=== PATIENT | male | born 1955 | race Caucasian/White ===

== ENCOUNTER 2021-10-21 15:21 | Inpatient (IN) | payer OTHER ==
[2021-10-21 16:05] LABS: Urine Blood Trace-intact (Negative); Urine Glucose Negative (Negative); Urine Protein 2+ (Negative); Urine Specific Gravity 1.025 (1.005-1.030); Urine pH 6.5 (5.0-7.0)
[2021-10-21] MEDS ORDERED: ONDANSETRON 4 MG/2 ML VIAL ONE (16:54)
[2021-10-21] MEDS ORDERED: HYDROMORPHONE HCL 1 MG/ML INJ ONE (16:54)
[2021-10-21 16:55] LABS: Absolute Lymphocytes (CBC) 1.2 K/uL (0.7-4.9); Hematocrit 45.4 % (39.6-49.0); Lymphocytes % 9.1 % (15.3-44.8); MPV 8.8 fL (7.6-11.3); RBC Red Blood Cell Count 4.91 M/uL (4.33-5.43)
[2021-10-21] MEDS ORDERED: NA CHLORIDE 0.9% 1,000 ML ONE (16:55)
[2021-10-21] MEDS ORDERED: METRONIDAZOLE 500mg IVPB 500 MG/100 ML BAG IV ONE (16:55)
[2021-10-21] MEDS ORDERED: CEFTRIAXONE 1000 MG/VIAL ONE (16:55)
[2021-10-21 17:01] LABS: Potassium 4.1 mmol/L (3.5-5.1)
[2021-10-21 17:37] LABS: Protime INR 1.58
[2021-10-21 17:46] LABS: ALT/SGPT 18 U/L (12-78); AST/SGOT 11 U/L (15-37); Albumin 3.5 g/dL (3.4-5.0); Alkaline Phosphatase 122 U/L (45-117); Amylase 70 U/L (25-115); Bilirubin Direct 0.2 mg/dL (0-0.2); Bilirubin Total 0.5 mg/dL (0.2-1.0); Creatine Phosphokinase 65 U/L (39-308); Lipase 263 U/L (73-393); Protein, Total 8.1 g/dL (6.4-8.2); Troponin (Emerg Dept Use Only) 0.05 ng/mL (0.0-0.045)
[2021-10-21 17:52] LABS: CKMB Creatine Kinase MB < 1.0 ng/mL (1.0-3.6)
--- NOTE | 2021-10-21 18:00 | RAD REPORT ---
EXAM DESCRIPTION: CT - Abdomen Pelvis W Contrast - 10/21/2021 5:48 pm CLINICAL HISTORY: Abdominal pain COMPARISON: none. TECHNIQUE: Computed axial tomography of the abdomen pelvis was obtained. 100 cc Isovue-300 was admin istered intravenously. Oral contrast was not requested which limits evaluation of bowel. All CT scans are performed using dose optimization technique as appropriate and may include automated exposure control or mA/KV adjustment according to patient size. FINDINGS: Small bilateral pleural effusions. Right hilar lymphadenopathy. Several subcentimeter righ t lung nodules. Multiple gallstones. Marked gallbladder wall thickening. 11 millimeter low to intermediate density lesion posterior segment right lobe of the liver. The spleen, pancreas, adrenals and left kidney are unremarkable. 1 millimeter calculus right kidney. There is no evidence of diverticulitis. The prostate gland is mildly enlarged. Small inguinal hernias contain fat. A small amount of pelvic ascites Normal appendix IMPRESSION: Cholelithiasis. Marked gallbladder wall thickening probably cholecystitis. Several small right lung nodules may indicate infection, inflammation or neoplasm. 11 millimeter nonspecific hepatic lesion. Followup ultrasound in 3 months recommended
--- NOTE | 2021-10-21 18:00 | RAD REPORT ---
EXAM DESCRIPTION: US - Abdomen Exam Limited - 10/21/2021 5:36 pm CLINICAL HISTORY: Abdominal pain. COMPARISON: None. FINDINGS: Multiple gallstones. Marked gallbladder wall thickening. The biliary tree is normal caliber. IMPRESSION: Cholelithiasis. Thickened gallbladder wall likely cholecystitis
--- NOTE | 2021-10-21 18:01 | RAD REPORT ---
EXAM DESCRIPTION: Laura Single View10/21/2021 5:53 pm CLINICAL HISTORY: Abdominal pain COMPARISON: none FINDINGS: Small bilateral pleural effusions Mild right hilar lymphadenopathy Mild bilateral interstitial lung opacities may infection or interstitial pulmonary edema Mild cardiomegaly
[2021-10-21 18:02] LABS: Urine Bacteria <20 /HPF (NONE SEEN); Urine RBC <5 /HPF (NONE SEEN)
--- NOTE | 2021-10-21 18:52 | EDPHYS ---
Physician Documentation [facility] Name: Devon Chapman Jr Age: 66 yrs Sex: Male : 1955 Arrival Date: 10/21/2021 Time: 15:23 Bed 17 Private MD: ED Physician Elan Davis HPI: 10/21 16:53 This 66 yrs old Male presents to ER via Ambulatory with complaints of Flank Pain - ma2 right. 16:53 The patient complains of pain in the right mid back. Onset: The symptoms/episode ma2 began/occurred gradually, 1 day(s) ago. Associated signs and symptoms: Pertinent negatives: dysuria, urinary frequency, headache, hematuria, nausea. Severity of pain: At its worst the pain was mild moderate in the emergency department the pain is unchanged. The patient has not experienced similar symptoms in the past. Patient here with right upper quadrant abdominal pain, epigastric, and right flank pain, for 2 days constant worse when he eats. Never had this before, he states he has no health issues.. Historical: - Allergies: 15:47 No Known Allergies; ww - Home Meds: 15:47 Coreg 12.5 mg Oral tab 1 tab 2 times per day [Active]; warfarin 4 mg Oral tab 1 tab ww once daily [Active]; aspirin 81 mg Oral chew 1 tab once daily [Active]; lisinopril 10 mg Oral tab 1 tab once daily [Active]; - Immunization history:: Client reports having NOT received the Covid vaccine. - Social history:: Smoking status: Patient reports the use of cigarette tobacco products, smokes two packs cigarettes per day. Patient uses alcohol, Patient/guardian denies using alcohol, street drugs, The patient lives with family. - Family history:: not pertinent. ROS: 16:53 Eyes: Negative for injury, pain, redness, and discharge. ma2 16:53 All other systems are negative. Exam: 16:53 Constitutional: This is a well developed, well nourished patient who is awake, alert, ma2 and in no acute distress. Chest/axilla: Normal chest wall appearance and motion. Nontender with no deformity. No lesions are appreciated. Cardiovascular: Regular rate and rhythm with a normal S1 and S2. No gallops, murmurs, or rubs. Normal PMI, no JVD. No pulse deficits. Respiratory: Lungs have equal breath sounds bilaterally, clear to auscultation and percussion. No rales, rhonchi or wheezes noted. No increased work of breathing, no retractions or nasal flaring. Abdomen/GI: Abdomen is tender in the right upper quadrant and epigastric area, otherwise soft, m with normal bowel sounds. No distension or tympany. No guarding or rebound. No evidence of tenderness throughout. Back: No spinal tenderness. No costovertebral tenderness. Full range of motion. Skin: Warm, dry with normal turgor. Normal color with no rashes, no lesions, and no evidence of cellulitis. MS/ Extremity: Pulses equal, no cyanosis. Neurovascular intact. Full, normal range of motion. Neuro: Awake and alert, GCS 15, oriented to person, place, time, and situation. Cranial nerves II-XII grossly intact. Motor strength 5/5 in all extremities. Sensory grossly intact. Cerebellar exam normal. Normal gait. Vital Signs: 15:45 BP 168 / 128; Pulse 124; Resp 18; Temp 96.0; Pulse Ox 94% on R/A; Weight 86.18 kg; ww Height 6 ft. 0 in. (182.88 cm); Pain 10/10; 17:34 BP 177 / 117; Pulse 98; Resp 17; Pulse Ox 98% on R/A; tw2 19:30 BP 152 / 84; Pulse 71; Resp 18; Pulse Ox 99% on R/A; mk 20:30 BP 145 / 71; Pulse 83; Resp 18; Pulse Ox 98% on R/A; mk 21:30 BP 141 / 92; Pulse 67; Resp 20; Temp 98.6; Pulse Ox 95% on R/A; natalee 22:18 BP 141 / 86; Pulse 84; Resp 20; Pulse Ox 95% on R/A; natalee 01 00:21 BP 110 / 60; Pulse 74; Resp 18; Temp 98.6; Pulse Ox 97% on R/A; Pain 6/10; natalee 02:04 BP 129 / 77; Pulse 67; Resp 18; Temp 98.5; Pulse Ox 96% on R/A; Pain 0/10; natalee 04:36 BP 107 / 61; Pulse 82; Resp 18; Pulse Ox 98% on R/A; Pain 0/10; natalee 05:59 BP 111 / 85; Pulse 75; Resp 18; Pulse Ox 97% on R/A; natalee 07:56 BP 133 / 73; Pulse 70; Resp 18; Pulse Ox 92% on R/A; natalee 10/21 15:45 Body Mass Index 25.77 (86.18 kg, 182.88 cm) ww [place] Coma Score: 10/21 19:30 Eye Response: spontaneous(4). Verbal Response: oriented(5). Motor Response: obeys mk commands(6). Total: 15. 20:30 Eye Response: spontaneous(4). Verbal Response: oriented(5). Motor Response: obeys mk commands(6). Total: 15. MDM: 16:04 Patient medically screened. ma2 16:53 Differential diagnosis: nephrolithiasis, pyelonephritis, UTI, pancreatitis. ma2 18:50 Data reviewed: vital signs, nurses notes. Counseling: I had a detailed discussion with [facility] the patient and/or guardian regarding: the historical points, exam findings, and any diagnostic results supporting the discharge/admit diagnosis, the presence of at least one elevated blood pressure reading (>120/80) during this emergency department visit, the need for further work-up and treatment in the hospital. Response to treatment: the patient's symptoms have markedly improved after treatment. ED course: Patient has acute cholecystitis, discussed with Dr. Eubanks and hospitalist mr ames. 10/21 16:04 Order name: Urine Dipstick-Ancillary; Complete Time: 16:07 EDWA 10/21 16:36 Order name: CBC with Diff; Complete Time: 17:27 10/21 16:36 Order name: Basic Metabolic Panel; Complete Time: 17:27 10/21 16:49 Order name: Amylase, Serum; Complete Time: 18:03 wa2 10/21 16:49 Order name: Blood Culture Adult (2) [facility] 10/21 16:49 Order name: CPK; Complete Time: 18:03 [facility] 10/21 16:49 Order name: Ckmb; Complete Time: 18:03 [facility] 10/21 16:49 Order name: LFT's; Complete Time: 18:03 [facility] 10/21 16:49 Order name: Lactate; Complete Time: 17:35 wa2 10/21 16:49 Order name: Lipase; Complete Time: 18:03 [facility] 10/21 16:49 Order name: Procalcitonin; Complete Time: 18:56 wa2 10/21 16:49 Order name: Protime (+inr); Complete Time: 18:03 wa2 10/21 16:49 Order name: Ptt, Activated; Complete Time: 18:03 wa2 10/21 16:49 Order name: CT Abd/Pelvis - IV Contrast Only; Complete Time: 18:03 wa2 10/21 16:49 Order name: US Abdomen Limited; Complete Time: 18:03 wa2 10/21 16:49 Order name: Troponin (emerg Dept Use Only); Complete Time: 18:03 wa2 10/21 16:49 Order name: Urine Microscopic Only; Complete Time: 18:03 wa2 10/21 16:49 Order name: Chest Single View XRAY; Complete Time: 18:03 wa10/21 16:49 Order name: SARS-COV-2 RT PCR (Document "Date of Onset" if Symptomatic); Complete Time: wa2 18:25 10/22 05:06 Order name: Troponin I; Complete Time: 05:49 [facility] 10/22 08:38 Order name: Protime (+INR) EDMS 10/22 08:38 Order name: PTT, Activated Partial Thromb EDMS 10/22 08:46 Order name: CBC with Automated Diff EDMS 10/22 09:05 Order name: Comprehensive Metabolic Panel EDMS 10/22 09:05 Order name: Lipid Profile EDMS 10/22 09:05 Order name: T4 Free EDMS 10/22 09:05 Order name: Magnesium EDMS 10/22 09:05 Order name: Thyroid Stimulating Hormone EDWA 10/22 09:06 Order name: Troponin I [facility] 10/21 16:46 Order name: IV Start; Complete Time: 16:46 2 10/21 16:46 Order name: Urine Dipstick-Ancillary (obtain specimen); Complete Time: 16:46 2 10/21 16:49 Order name: Cardiac monitoring; Complete Time: 17:28 wa2 10/21 16:49 Order name: EKG - Nurse/Tech; Complete Time: 17:39 ma2 10/21 16:49 Order name: IV Saline Lock - Large Bore; Complete Time: 16:52 wa2 10/21 16:49 Order name: Labs collected and sent; Complete Time: 17:21 [facility] 10/21 16:49 Order name: O2 Per Protocol; Complete Time: 16:52 [facility] 10/21 16:49 Order name: O2 Sat Monitoring; Complete Time: 16:52 [facility] 10/21 16:49 Order name: Urine Dipstick-Ancillary (obtain specimen); Complete Time: 16:52 [facility] 10/21 18:55 Order name: NPO: AFTER MIDNIGHT; Complete Time: 07:29 la1 Administered Medications: 17:15 Drug: NS 0.9% 1000 ml Route: IV; Rate: 1 bolus; Site: right wrist; tw2 17:15 Drug: Zofran (Ondansetron) 4 mg Route: IVP; Site: right wrist; tw2 19:03 Follow up: Response: No adverse reaction tw2 17:17 Drug: Dilaudid (HYDROmorphone) 1 mg Route: IVP; Site: right wrist; tw2 19:03 Follow up: Response: No adverse reaction tw2 17:25 Drug: Rocephin (cefTRIAXone) 1 grams Route: IV; Rate: calculated rate; Site: right tw2 wrist; 17:27 Follow up: Response: No adverse reaction; IV Status: Completed infusion; IV Intake: [id number] 17:27 Drug: Flagyl (metroNIDAZOLE) 500 mg Volume: 100 ml; Route: IVPB; Rate: 200 ml/hr; tw2 Infused Over: 30 mins; Site: right wrist; 18:57 Not Given (see nursing noteds. pt took personal medicationn): Coreg (carvedilol) 12.5 tw2 mg PO once 19:09 Drug: Dilaudid (HYDROmorphone) 0.5 mg {Note: rass 0.} Route: IVP; Site: right tw2 antecubital; 10/22 07:29 Follow up: Response: No adverse reaction natalee 10/21 19:10 Drug: Lovenox (enoxaparin) 1 mg/kg Route: Sub-Q; Site: right lower abdomen; tw2 10/22 07:29 Follow up: Response: No adverse reaction natalee Disposition Summary: 10/21/21 18:51 Hospitalization Ordered Hospitalization Status: Inpatient Admission ma2 Provider: Reza Quevedo wa2 Condition: Stable ma2 Problem: new ma2 Symptoms: are unchanged ma2 Bed/Room Type: Standard [facility] Location: [facility] ER HOLD(10/21/21 21:27) Room Assignment: ERHOLD-(10/21/21 21:27) Diagnosis - Acute cholecystitis [facility] Forms: - Medication Reconciliation Form ma2 - SBAR form wa2 Signatures: Dispatcher [employer] EDMS Ethan Ames, TRAVEL ASSISTANT-C TRAVEL ASSISTANT-Cla1 Jamilah Espitia RN RN Diann Clarke RN RN [facility] Elan Davis MD MD [facility] Amanda Ramirez RN RN Lisette Deras RN natalee Corrections: (The following items were deleted from the chart) 10/21 16:52 16:49 Accucheck ordered. wa2 tw 17:18 16:50 BASIC METABOLIC PANEL+C.LAB.BRZ ordered. EDMS EDMS 18:55 18:25 NPO ordered. wa2 la1 21:27 18:51 Telemetry/MedSurg (Inpatient) [facility] cg 21:27 18:51 [facility]
--- NOTE | 2021-10-21 18:52 | ER ---
Nurse's Notes [facility] Name: Devon Chapman Jr Age: 66 yrs Sex: Male : 1955 Arrival Date: 10/21/2021 Time: 15:23 Bed 17 Private MD: Diagnosis: Acute cholecystitis Presentation: 10/21 15:45 Chief complaint: Patient states: Right upper quadrant abdominal pain that radiates to ww his back. Happens after eating a meal. Started 3 weeks ago and has progressively gotten worse. Coronavirus screen: Vaccine status: Patient reports being unvaccinated. Client denies travel out of the [place] in the last 14 days. Ebola Screen: Patient negative for fever greater than or equal to 101.5 degrees Fahrenheit, and additional compatible Ebola Virus Disease symptoms Patient denies exposure to infectious person. Initial Sepsis Screen: Does the patient meet any 2 criteria? No. Patient's initial sepsis screen is negative. Does the patient have a suspected source of infection? No. Patient's initial sepsis screen is negative. Risk Assessment: Do you want to hurt yourself or someone else? Patient reports no desire to harm self or others. Onset of symptoms is unknown. 15:45 Method Of Arrival: Ambulatory ww 15:45 Acuity: SHAYNA 3 ww Triage Assessment: 15:47 General: Appears uncomfortable, Behavior is cooperative, anxious. Pain: Complains of ww pain in right upper quadrant. EENT: No deficits noted. No signs and/or symptoms were reported regarding the EENT system. Neuro: No deficits noted. Level of Consciousness is awake, alert, obeys commands, Oriented to person, place, time, situation. Cardiovascular: No deficits noted. Respiratory: No deficits noted. Airway is patent Respiratory effort is even, unlabored, Respiratory pattern is regular, symmetrical. GI: Abdomen is tender to palpation in right upper quadrant Reports upper abdominal pain. : No deficits noted. No signs and/or symptoms were reported regarding the genitourinary system. Derm: No deficits noted. No signs and/or symptoms reported regarding the dermatologic system. Skin is intact, Skin temperature is. Historical: - Allergies: 15:47 No Known Allergies; ww - Home Meds: 15:47 Coreg 12.5 mg Oral tab 1 tab 2 times per day [Active]; warfarin 4 mg Oral tab 1 tab ww once daily [Active]; aspirin 81 mg Oral chew 1 tab once daily [Active]; lisinopril 10 mg Oral tab 1 tab once daily [Active]; - Immunization history:: Client reports having NOT received the Covid vaccine. - Social history:: Smoking status: Patient reports the use of cigarette tobacco products, smokes two packs cigarettes per day. Patient uses alcohol, Patient/guardian denies using alcohol, street drugs, The patient lives with family. - Family history:: not pertinent. Screenin:57 Abuse screen: Denies threats or abuse. Denies injuries from another. Nutritional car[place] screening: No deficits noted. Tuberculosis screening: No symptoms or risk factors identified. Fall Risk None identified. Assessment: 15:57 General: Appears in no apparent distress. Behavior is calm, cooperative. Pain: carrington Complains of pain in right upper quadrant. 17:15 General: Appears in no apparent distress. uncomfortable, Behavior is calm, cooperative, tw2 appropriate for age. Pain: Complains of pain in abdomen and right upper quadrant Pain radiates to back. Neuro: Level of Consciousness is awake, alert, obeys commands, Oriented to person, place, time, situation. Cardiovascular: Patient's skin is warm and dry. Respiratory: Airway is patent Respiratory effort is even, unlabored, Respiratory pattern is regular, symmetrical. GI: Abdomen is flat, Reports upper abdominal pain, Patient currently denies diarrhea, nausea. : No signs and/or symptoms were reported regarding the genitourinary system. Musculoskeletal: Range of motion: intact in all extremities. 17:55 GI: Reports cramping. carrington 17:56 Reassessment: Patient appears in no apparent distress at this time. Patient and/or tw2 family updated on plan of care and expected duration. Pain level reassessed. Patient is alert, oriented x 3, equal unlabored respirations, skin warm/dry/pink. pt back from CT at this time. nad. 18:06 Reassessment: pt asking to take home medication at this time of Lisinopril 10 mg, tw2 Carvedilol 12.5 mg, Warfarin 4 mg, aspirin [address] Davis pt can ONLY take Lisinopril 10 mg \T\ Carvedilol 12.5 mg at this time. pt educated and takes BP meds at this time. 19:44 General: Appears in no apparent distress. Behavior is calm, cooperative, per day shift lisa RN, pt took home coreg so coreg cancelled. Pain:. Neuro: Level of Consciousness is awake, alert, obeys commands, Oriented to person, place, time, situation. Cardiovascular: Heart tones S1 S2 Capillary refill < 3 seconds fingers toes. Respiratory: Airway is patent Respiratory effort is even, unlabored, Respiratory pattern is regular, symmetrical. GI: Abdomen is flat, Reports upper abdominal pain, cramping, Patient currently denies diarrhea, nausea. : Derm: Skin is intact, is healthy with good turgor. Musculoskeletal: Capillary refill < 3 seconds, is brisk, fingers. toes. Range of motion: intact in all extremities. 20:30 Reassessment: Patient and/or family updated on plan of care and expected duration. Pain mk level reassessed. Patient is alert, oriented x 3, equal unlabored respirations, skin warm/dry/pink. 21:30 Reassessment: Patient and/or family updated on plan of care and expected duration. Pain mk level reassessed. Patient is alert, oriented x 3, equal unlabored respirations, skin warm/dry/pink. 22:13 General: I recv'd the pt at 2130, to room #17. I agree with the previous assessment. natalee The pt was given water and understands NPO, after mn. He is in NAD. . 10/22 00:23 General: I spoke with Ethan and my charge, as the pt needs pain medication, but it is in [facility]. The charge will help me access, lorne. Pt currently sleeping. NAD. . Vital Signs: 10/21 15:45 BP 168 / 128; Pulse 124; Resp 18; Temp 96.0; Pulse Ox 94% on R/A; Weight 86.18 kg; ww Height 6 ft. 0 in. (182.88 cm); Pain 10/10; 17:34 BP 177 / 117; Pulse 98; Resp 17; Pulse Ox 98% on R/A; tw2 19:30 BP 152 / 84; Pulse 71; Resp 18; Pulse Ox 99% on R/A; mk 20:30 BP 145 / 71; Pulse 83; Resp 18; Pulse Ox 98% on R/A; mk 21:30 BP 141 / 92; Pulse 67; Resp 20; Temp 98.6; Pulse Ox 95% on R/A; natalee 22:18 BP 141 / 86; Pulse 84; Resp 20; Pulse Ox 95% on R/A; natalee 01 00:21 BP 110 / 60; Pulse 74; Resp 18; Temp 98.6; Pulse Ox 97% on R/A; Pain 6/10; natalee 02:04 BP 129 / 77; Pulse 67; Resp 18; Temp 98.5; Pulse Ox 96% on R/A; Pain 0/10; natalee 04:36 BP 107 / 61; Pulse 82; Resp 18; Pulse Ox 98% on R/A; Pain 0/10; natalee 05:59 BP 111 / 85; Pulse 75; Resp 18; Pulse Ox 97% on R/A; natalee 07:56 BP 133 / 73; Pulse 70; Resp 18; Pulse Ox 92% on R/A; natalee 10/21 15:45 Body Mass Index 25.77 (86.18 kg, 182.88 cm) ww Bg Coma Score: 10/21 19:30 Eye Response: spontaneous(4). Verbal Response: oriented(5). Motor Response: obeys mk commands(6). Total: 15. 20:30 Eye Response: spontaneous(4). Verbal Response: oriented(5). Motor Response: obeys mk commands(6). Total: 15. ED Course: 15:23 Patient arrived in ED. am2 15:47 Triage completed. ww 15:47 Arm band placed on left wrist. ww 15:57 Fall risk band placed. Bed in low position. carrington 15:57 No provider procedures requiring assistance completed. carrington 16:04 Elan Davis MD is Attending Physician. ma2 16:15 Inserted saline lock: 20 gauge in right antecubital area, using aseptic technique. 3 Blood collected. 16:45 Diann Clarke, KATARINA is Primary Nurse. tw2 17:00 First set of blood cultures drawn by nh. Inserted saline lock: 20 gauge in right 3 antecubital area, using aseptic technique. Blood collected. 17:00 EKG done, by ED staff, reviewed by Elan Davis MD. dh3 17:04 Initial lab(s) drawn, by nh, sent to lab. Second set of blood cultures drawn by nh. dh3 17:21 Urine Microscopic Only Sent. dh3 17:36 US Abdomen Limited In Process Unspecified. EDMS 17:48 CT Abd/Pelvis - IV Contrast Only In Process Unspecified. EDMS 17:53 Chest Single View XRAY In Process Unspecified. EDMS 18:51 Reza Quevedo MD is Hospitalizing Provider. ma2 19:33 Primary Nurse role handed off by Diann Clarke RN cs9 19:42 Ryanne Mcpherson RN is Primary Nurse. mk 22:27 Report given to Lisette BRAY. mk 10/22 02:04 Appears to be sleeping. natalee 02:04 child monitor on. Pulse ox on. NIBP on. Door closed. Lights dimmed. Warm blanket natalee given. Pillow given. Verbal reassurance given. 07:28 Primary Nurse role handed off by Ryanne Mcpherson RN bd Administered Medications: 10/21 17:15 Drug: NS 0.9% 1000 ml Route: IV; Rate: 1 bolus; Site: right wrist; tw2 17:15 Drug: Zofran (Ondansetron) 4 mg Route: IVP; Site: right wrist; tw2 19:03 Follow up: Response: No adverse reaction tw2 17:17 Drug: Dilaudid (HYDROmorphone) 1 mg Route: IVP; Site: right wrist; tw2 19:03 Follow up: Response: No adverse reaction tw2 17:25 Drug: Rocephin (cefTRIAXone) 1 grams Route: IV; Rate: calculated rate; Site: right tw2 wrist; 17:27 Follow up: Response: No adverse reaction; IV Status: Completed infusion; IV Intake: [id number] 17:27 Drug: Flagyl (metroNIDAZOLE) 500 mg Volume: 100 ml; Route: IVPB; Rate: 200 ml/hr; tw2 Infused Over: 30 mins; Site: right wrist; 18:57 Not Given (see nursing noteds. pt took personal medicationn): Coreg (carvedilol) 12.5 tw2 mg PO once 19:09 Drug: Dilaudid (HYDROmorphone) 0.5 mg {Note: rass 0.} Route: IVP; Site: right tw2 antecubital; 10/22 07:29 Follow up: Response: No adverse reaction natalee 10/21 19:10 Drug: Lovenox (enoxaparin) 1 mg/kg Route: Sub-Q; Site: right lower abdomen; tw2 10/22 07:29 Follow up: Response: No adverse reaction natalee Intake: 10/21 17:27 IV: 10ml; Total: 10ml. 2 Output: 10/22 04:43 Urine: 500ml (Voided); Total: 500ml. natalee Outcome: 10/21 18:51 Decision to Hospitalize by Provider. mn2 10/22 02:11 Condition: stable natalee 12:59 Patient left the ED. iw Signatures: Dispatcher [employer] EDMS Abi Flores Irene, RN RN Vince, Diann, RN RN tw2 Kaelyn Sloan, Evelin Elan Jonas MD MD [facility] Calvo Brenda RN Amanda Pennington, RN RN Au-Stager, Heaven RN Ryanne Ho, RN KATARINA gonzalez Corrections: (The following items were deleted from the chart) 10/21 21:08 19:44 Cardiovascular: Heart tones S1 S2 [facility] 22:19 21:30 BP 141 / 86; Pulse 82bpm; Resp 20bpm; Pulse Ox 94% RA; natalee natalee 22:27 19:44 General: Appears in no apparent distress. Behavior is calm, cooperative, [facility]
[2021-10-21] MEDS ORDERED: HYDROMORPHONE HCL 0.5 MG/0.5 ML INJ ONE (19:00)
[2021-10-21] MEDS ORDERED: ENOXAPARIN 80 MG/0.8 ML SQ ONE (19:00)
--- NOTE | 2021-10-21 19:37 | P.HP ---
Certification for Inpatient Patient admitted to: Inpatient With expected LOS: >2 Midnights Patient will require the following post-hospital care: None Practitioner: I am a practitioner with admitting privileges, knowledge of patient current condition, hospital course, and medical plan of care. Services: Services provided to patient in accordance with Admission requirements found in Title 42 Section 412.3 of the Code of Federal Regulations Patient History Date of Service: 10/21/21 Primary Care Provider: none-cardiology [facility] Reason for admission: Cholecystitis History of Present Illness: 66-year-old male with history of atrial fibrillation, artificial valve, hypertension presents emergency department for right upper quadrant abdominal pain. Patient reports approximate 24 to 48 hours of right upper quadrant pain radiating to the back. Patient was evaluated in the emergency department labs were significant for white blood cell count 12.8 INR 1.58 creatinine 1.32 GFR 54 glucose 121 troponin 0.05 chest x-ray shows small bilateral pleural effusions mild bilateral interstitial lung opacities may indicate infection or interstitial pulmonary edema CT of the abdomen pelvis with contrast demonstrates cholelithiasis with marked gallbladder wall thickening possibly cholecystitis, several small right lung nodules may indicate infection inflammation or neoplasm in addition to an 11 mm nonspecific hepatic lesion with recommended follow-up ultrasound in 3 months abdominal ultrasound demonstrates cholelithiasis with thickened gallbladder likely cholecystitis. Patient reports that he takes warfarin daily but has not had it since 10/19/2021. Case was discussed with general surgery who recommends patient be admitted on IV antibiotics, n.p.o. after midnight and cardiac clearance for cholecystectomy. - Past Medical/Surgical History -: Atrial fibrillation -: Artificial valve -: Hypertension -: Artificial valve -: Right shoulder Psychosocial/ Personal History: Patient retired, lives at home alone. - Family History Father -: Cancer Mother -: Cancer - Social History Smoking Status: Current every day smoker Counseled patient to stop smoking for: less than 10 minutes Smoking therapy provided: No (Patient declined) Alcohol use: Yes CD- Drugs: No Caffeine use: Yes Place of Residence: Home Review of Systems 10-point ROS is otherwise unremarkable Gastrointestinal: Nausea, Abdominal Pain Physical Examination - Physical Exam General: Alert, In no apparent distress, Oriented x3 HEENT: Atraumatic, PERRLA, Mucous membr. moist/pink, EOMI, Sclerae nonicteric Neck: Supple, 2+ carotid pulse no bruit, No LAD, Without JVD or thyroid abnormality Respiratory: Clear to auscultation bilaterally, Normal air movement Cardiovascular: Regular rate/rhythm, Normal S1 S2 Capillary refill: <2 Seconds Gastrointestinal: Normal bowel sounds, No rebound, No guarding, Tenderness (Moderate right upper quadrant/epigastric tenderness) Musculoskeletal: No tenderness Integumentary: No rashes Neurological: Normal speech, Normal strength at 5/5 x4 extr, Normal tone, Normal affect - Studies Laboratory Data (last 24 hrs) 10/21/21 17:06: PT 18.3 H, INR 1.58, APTT 39.5 H 10/21/21 17:06: Sodium Cancelled, Potassium Cancelled, BUN Cancelled, Creatinine Cancelled, Glucose Cancelled, Total Bilirubin 0.5, AST 11 L, ALT 18, Alkaline Phosphatase 122 H, Amylase 70, Lipase 263 10/21/21 16:15: Sodium 137, Potassium 4.1, BUN 20 H, Creatinine 1.32 H, Glucose 121 H 10/21/21 16:15: WBC 12.80 H, Hgb 14.8, Hct 45.4, Plt Count 320 Assessment and Plan - Plan Assessment: Acute cholecystitis History of atrial fibrillation/artificial valve on chronic anticoagulation therapy with mildly elevated troponin Hypertension Incidental radiology findings Several small right lung nodules may indicate infection, inflammation or neoplasm 11 millimeter nonspecific hepatic lesion Plan: Acute cholecystitis: N.p.o. after midnight, gentle IV fluids, cardiology consult in place for cardiac clearance. IV antibiotics, as needed pain medications. Repeat LFTs and INR in the a.m. History of atrial fibrillation/artificial valve on chronic anticoagulation therapy with mildly elevated troponin: Monitor on telemetry, given dose of Lovenox this evening as he missed his last 2 doses of Coumadin. Cardiology consulted. Obtaining continue home medications. Hypertension: Obtain and continue home medication, will provide as needed IV medication this evening as patient will be n.p.o. Incidental radiology findings Several small right lung nodules may indicate infection, inflammation or neoplasm 11 millimeter nonspecific hepatic lesion: Discussed with patient, radiology recommends follow-up ultrasound of nonspecific hepatic lesion in 3 months, will recommend patient follow-up with pulmonology on an outpatient basis for further evaluation of small right lung nodules. DVT PPX: Given 1 dose of full dose Lovenox in ER as patient had missed last 2 days of Coumadin, SCDs after this until cleared by surgery. Code status: Full code Discharge Plan: Home Plan to discharge in: 48 Hours - Advance Directives Does patient have a Living Will: No Does patient have a Durable POA for Healthcare: No - Code Status/Comfort Care Code Status Assessed: Yes (Full code) Critical Care: No Time Spent Managing Pts Care (In Minutes): 55
[2021-10-22] MEDS: NA CHLORIDE 0.9% 1,000 ML IV SCH ×3 (02:27→22:27)
[2021-10-22] MEDS ORDERED: ONDANSETRON 4 MG/2 ML VIAL IV PRN ×2 (02:27→15:32)
[2021-10-22] MEDS: PIPER TAZO 3.375 GM in NA CHLORIDE 0.9% 100 ML IV SCH ×3 (02:27→18:00)
[2021-10-22] MEDS ORDERED: HYDROMORPHONE HCL 0.5 MG/0.5 ML INJ IV PRN (02:27)
[2021-10-22] MEDS ORDERED: HYDRALAZINE HCL 20 MG/ML VIAL IV PRN (02:27)
[2021-10-22] MEDS ORDERED: ONDANSETRON 4 MG/2 ML VIAL ONE ×2 (02:37→14:03)
[2021-10-22] MEDS ORDERED: NA CHLORIDE 0.9% 100 ML ONE (02:37)
[2021-10-22] MEDS ORDERED: PIPERACIL/TAZO 3.375 GM VIAL IV ONE ×2 (02:37→07:36)
[2021-10-22] MEDS ORDERED: NA CHLORIDE 0.9% 1,000 ML ONE (02:38)
--- NOTE | 2021-10-22 06:46 | P.PN ---
Date of Service: 10/22/21 Subjective: Slight improvement in pain, secondary to pain medication Otherwise no significant change since admission last night Remains tender in right upper quadrant. No emesis ROS: 10 point ROS as noted above, otherwise negative Physical exam GEN: Alert, oriented, appears uncomfortable HEENT: Normal conjunctiva, sclera anicteric CV: Irregular rate/rhythm Pulm: Nonlabored respiration on room air ABD: Soft, tenderness to palpation in RUQ, no rebound Integumentary: No rashes Neuro: Normal speech, normal affect Problem List Acute cholecystitis History of atrial fibrillation/artificial valve on chronic anticoagulation th erapy with mildly elevated troponin Hypertension Incidental radiology findings Several small right lung nodules may indicate infection, inflammation or neoplasm 11 millimeter nonspecific hepatic lesion Plan: Acute cholecystitis: N.p.o., IV fluids Cardiology consulted for cardiac clearance Continue IV antibiotics Pain medication as needed General surgery consulted, anticipate surgery today History of atrial fibrillation/artificial valve on chronic anticoagulation therapy with mildly elevated troponin: Monitor telemetry, will discuss further with general surgery Missed last 2 doses of Coumadin Suspect reinitiation of Coumadin tonight/bridging, however dependent on surgical findings/if any complications Continue home medications Hypertension: Obtain and continue home medication, will provide as needed IV medication this evening as patient will be n.p.o. Incidental radiology findings Several small right lung nodules may indicate infection, inflammation or neoplasm 11 millimeter nonspecific hepatic lesion: radiology recommends follow-up ultrasound of nonspecific hepatic lesion in 3 months, will recommend patient follow-up with pulmonology on an outpatient basis for further evaluation of small right lung nodules. DVT PPX: Coumadin bridge, Lovenox Code status: Full code Dispo: Anticipate DC home in ~2 days
[2021-10-22] MEDS ORDERED: HYDROMORPHONE HCL 0.5 MG/0.5 ML INJ ONE (07:36)
[2021-10-22 08:34] LABS: Absolute Lymphocytes (CBC) 0.8 K/uL (0.7-4.9); Hematocrit 37.8 % (39.6-49.0); MPV 8.4 fL (7.6-11.3)
[2021-10-22 08:37] LABS: Protime INR 1.53
[2021-10-22 09:01] LABS: Albumin 2.7 g/dL (3.4-5.0); Bilirubin Total 1.1 mg/dL (0.2-1.0); Potassium 3.7 mmol/L (3.5-5.1); Protein, Total 6.1 g/dL (6.4-8.2); Thyroid Stimulating Hormone 1.8 uIU/mL (0.360-3.740)
[2021-10-22] MEDS ORDERED: HYDROMORPHONE HCL 1 MG/ML INJ IV ONE (10:48)
--- NOTE | 2021-10-22 11:53 | CON ---
Date of Consultation: 10/22/2021 Reason For Consultation: Cardiac clearance for cholecystectomy. History Of Present Illness: Mr. Chapman is 66. 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 Does not remember the name of the physician. Has had no c ardiac complaint since he had normal coronaries at that point. Comes in with acute cholecystitis. N o cardiac complaint. Plan for cardiac clearance. Allergies: NONE. Review of Systems: Negative. Social History: Negative. Family History: Negative. Medications: At home include aspirin, Coreg, lisinopril, and Coumadin. Past Medical History: Includes aortic valve replacement, atrial fibrillation, hypertension. Physical Examination: Vital Signs: Stable, afebrile, atrial fibrillation, rate of 68. HEENT: Negative. Neck: Supple with no bruit. Chest: Clear. Cardiac: Revealed a crisp aortic valve sound. No murmurs, gallops, or rubs. Abdomen: Positive cholecystitis. Extremities: No clubbing, cyanosis, or edema. Diagnostic Data: Within normal limit. Troponin 0.05. Impression And Plan: 1.Aortic valve replacement, mechanical. INR is 1.53. Clear for surgery. After surgery, give Loven ox and Coumadin. He needs to be bridged until his Coumadin level is about 2.5 to 3 before he stops L ovenox. He is cleared for surgery. 2.Atrial fibrillation, rate controlled, on Coumadin and Coreg. 3.Hypertension, well controlled. I do not see any need to do any cardiac workup. We will see how h e does postop. I will be available for questions. LAURA/AIDAN Voice ID: [id number] Report ID: [id number]
[2021-10-22] MEDS ORDERED: ACETAMINOPHEN 500 MG TAB ONE (12:45)
[2021-10-22] MEDS ORDERED: CELECOXIB 100 MG CAPSULE ONE (12:45)
[2021-10-22] MEDS ORDERED: propofoL 200 MG/20 ML VIAL IV ONE (12:53)
[2021-10-22] MEDS ORDERED: ROCURONIUM 50 MG/5 ML VIAL IV ONE (12:53)
[2021-10-22] MEDS ORDERED: LIDOCAINE 1% MPF 5 ML VIAL ONE (12:53)
[2021-10-22] MEDS ORDERED: FENTANYL CITR 100 MCG/2 ML ONE ×2 (12:53→14:32)
[2021-10-22] MEDS ORDERED: MIDAZOLAM HCL 2 MG/2 ML INJ ONE (12:53)
[2021-10-22] MEDS ORDERED: Ringers Lactate 1,000 ML IV ONE ×2 (12:56→15:03)
[2021-10-22] MEDS ORDERED: CEFAZOLIN SODIUM 1 GM/VIAL ONE ×2 (13:09→13:25)
[2021-10-22] MEDS ORDERED: BUPIVACAINE 0.5% PF 10 ML VIAL ONE (13:15)
[2021-10-22] MEDS ORDERED: SUCCINYLCHOLINE 20 MG/ML (10 ML) IV ONE (13:41)
[2021-10-22] MEDS ORDERED: KETOROLAC 30 MG/ML INJ ONE (14:03)
[2021-10-22] MEDS ORDERED: NEOSTIGMINE 1 MG/ML -5 ML ONE (14:03)
[2021-10-22] MEDS ORDERED: GLYCOPYRROLATE 0.2 MG/ML SYR ONE (14:03)
[2021-10-22] MEDS ORDERED: NS 0.9% VIAL 10 ML ONE (14:20)
[2021-10-22] MEDS ORDERED: EPHEDRINE SULF 50 MG/ML VIAL ONE (14:20)
--- NOTE | 2021-10-22 14:29 | PREOPCON ---
Date of Consultation: 10/21/2021 Reason For Consultation: Cholecystitis. History Of Present Illness: The patient is a 66-year-old gentleman, who comes in with a 3-week histo ry of off and on right upper quadrant pain going to the back, postprandial in nature; however, over t he last week or so, especially over the weekend, pain worsened, severe pain associated with nausea an d vomiting. No diarrhea or constipation. No blood in his stool. No dysuria or hematuria. No sore throat, runny nose, cough, headaches, or dizziness. Does have right-sided chest pain. No fever or c hills. The patient also has an artificial valve, on Coumadin with last dose was taken on Friday. Hi s INR on admission yesterday was 1.58, today is 1.53. Review of Systems: Otherwise unremarkable. Past Medical History: Significant for hypertension, aortic valve disease, and atrial fibrillation. Past Surgical History: Aortic valve replacement, right shoulder surgery. Allergies: NONE. Social History: The patient does smoke. Has been counseled. Does drink alcohol occasionally. Family History: Unknown type of cancer in the parents. Physical Examination: Vital Signs: Stable. He is afebrile. General: He is awake, alert, and oriented x3. HEENT: There is no evidence of icterus. Cranial nerves 2 through 12 are grossly within normal limit s. No neck masses. No JVD. Throat clear. Neck: Supple. Chest: Clear. Heart: S1, S2. Abdomen: Soft, nondistended. Positive bowel sounds. Positive right upper quadrant tenderness rebou nd, and rigidity. Extremity: Adequately perfused. Nontender. Neuro: Nonfocal. Diagnostic Data: His LFTs are within normal limits. His white count with a left shift. CT of the abdomen and pelvis as well as the ultrasound reviewed with the radiologist and it shows cho lelithiasis, marked gallbladder wall thickening with cholecystitis, several small lung nodules, may i ndicate infection, inflammation or neoplasm, 11 mm nonspecific hepatic lesion, follow up ultrasound i n 3 months recommended. Assessment: Acute cholecystitis, cholelithiasis. The patient is on anticoagulation for aortic valve replacement. Recommendations: N.p.o., IV fluids, IV antibiotics, parenteral pain management. We will hold the Co umadin. The patient was given Lovenox last night. We will proceed with laparoscopic cholecystectomy , possible open. Risks, benefits, and alternatives were explained to the patient in detail. He unde rstood and agreed. Plan of care was also discussed with Dr. Diego. We will start the patient on L ovenox post surgery as well as Coumadin. /MODL Voice ID: [id number] Report ID: [id number]
--- NOTE | 2021-10-22 15:14 | P.OP ---
Dry Chain Puller: Juan A WEISS Preoperative diagnosis: Acute Cholecystitis and Choleelithiasis Postoperative diagnosis: same Primary procedure: Lap Emilee Anesthesia: General Estimated blood loss: min Specimen: GB Findings: as above Complications: None Transferred to: Recovery Room Condition: Good
--- NOTE | 2021-10-22 15:59 | OP ---
Date of Procedure: 10/22/2021 Surgeon: Luis F Eubanks MD Security Flex Utility Officer: ISELA Ruiz. Preoperative Diagnoses: Acute cholecystitis and cholelithiasis. Postoperative Diagnoses: Acute cholecystitis and cholelithiasis. Procedure: Laparoscopic cholecystectomy. Estimated Blood Loss: Minimal. Specimen: Gallbladder. Finding: As above. Anesthesia: General. Complications: None. Disposition: The patient tolerated the procedure in stable condition and taken to Recovery in good g eneral condition. Procedure In Detail: The patient was brought to the OR and placed in supine position. General anest hesia begun. The patient was prepped and draped in usual sterile fashion. Marcaine 0.5% infiltrated locally. A 15-blade was used to make a 1 cm infraumbilical midline incision. Subcutaneous tissue d ivided. Fascia identified and divided. A #1 Vicryl stay suture was placed. Peritoneal cavity enter ed with sharp and blunt dissection. A 12 mm trocar was placed into the peritoneal cavity under direc t vision. Pneumoperitoneum was established. Then, three 5 mm trocars placed under direct vision, 1 in the epigastrium just to the right of midline and 2 in the right subcostal region. Laparoscopy rev ealed a very thick wall gallbladder with a little bit of fluid in the right upper quadrant consistent with acute cholecystitis and cholelithiasis. The gallbladder was aspirated of some bile. Grasping instruments were utilized carefully. Subsequently, infundibulum was identified and retracted inferol aterally. Cystic duct and cystic artery were clearly identified with blunt dissection. Clips were p laced. Both structures were divided. Cautery was used to remove the gallbladder from the liver bed. Bleeding on the liver bed was controlled with cautery. Gallbladder was retrieved through the umbil icus via an EndoCatch bag and then right upper quadrant examined. No evidence of bleeding or bile le akage appreciated. Subsequently, all trocars were removed under direct vision. A #1 Vicryl used to close the fascial defect, which had to be extended to remove the gallbladder as it was little big. S ubsequently, wound irrigated, bleeding controlled with cautery and a 3-0 chromic used to reapproximat e subcutaneous tissue and close the skin. Sterile dressing applied. The patient was awakened and ta gita to Recovery in good general condition. /MODL Voice ID: [id number] Report ID: [id number]
[2021-10-22] MEDS: HYDROMORPHONE HCL 1 MG/ML INJ ONE ×2 (17:00→17:05)
[2021-10-22 18:13] VITALS: BMI 25.7
[2021-10-22] MEDS ORDERED: WARFARIN SODIUM 2.5 MG TAB PO SCH (19:00)
[2021-10-22] MEDS ORDERED: PNEUMOCOCCAL VACCINE 0.5 ML IMVAC ONE (20:00)
[2021-10-22] MEDS ORDERED: INFLUENZA VACCINE (for 6+ mo) 0.5 ML DOSE IMVAC ONE (20:00)
[2021-10-22] MEDS: ENOXAPARIN 80 MG/0.8 ML SQ SCH (21:37)
[2021-10-23] MEDS: HYDROCODONE/APAP 7.5/325 MG TAB PO PRN ×2 (00:32→14:47)
[2021-10-23] MEDS: PIPER TAZO 3.375 GM in NA CHLORIDE 0.9% 100 ML IV SCH ×3 (00:33→17:30)
[2021-10-23] MEDS: NA CHLORIDE 0.9% 1,000 ML IV SCH ×4 (00:33→20:03)
[2021-10-23 03:57] LABS: Hematocrit 35.6 % (39.6-49.0); MPV 8.8 fL (7.6-11.3); RBC Red Blood Cell Count 3.84 M/uL (4.33-5.43)
[2021-10-23 04:02] LABS: Albumin 2.5 g/dL (3.4-5.0); Bilirubin Total 0.8 mg/dL (0.2-1.0); Phosphorus 4.3 mg/dL (2.5-4.9)
[2021-10-23 04:05] LABS: Protime INR 1.46
[2021-10-23] MEDS: HYDROMORPHONE HCL 1 MG/ML INJ IV PRN ×3 (05:31→17:31)
--- NOTE | 2021-10-23 09:41 | PN ---
Date of Progress Note: 10/23/2021 Mr. Chapman had his cholecystectomy yesterday. INR now is 1.46. He is on Coumadin 2.5 mg daily and Caterina enox. We need to continue to follow his PT and INR. I am comfortable with him going home whenever i t is okay with Dr. Eubanks on Coumadin and Lovenox. Continue INR monitoring. When his INR is about 2. 5, he can stop the Lovenox. He can follow up with his forestry aide in that regard. LAURA/AIDAN Voice ID: [id number] Report ID: [id number]
[2021-10-23] MEDS: ENOXAPARIN 80 MG/0.8 ML SQ SCH ×2 (09:47→20:03)
[2021-10-23 11:21] LABS: Urine Appearance TURBID (Clear); Urine Bilirubin ND (Negative); Urine Blood ND (Negative); Urine Color BROWN (Yellow); Urine Glucose ND (Negative); Urine Protein ND (Negative); Urine Urobilinogen ND mg/dL (0.2-1.0); Urine pH ND (5.0-7.0)
[2021-10-23 11:22] LABS: Urine Bacteria <20 /HPF (NONE SEEN); Urine Mucus LIGHT /HPF (NONE SEEN); Urine RBC >50 /HPF (NONE SEEN); Urine Specific Gravity ND (1.005-1.030)
--- NOTE | 2021-10-23 12:11 | PN ---
Date of Progress Note: 10/23/2021 Subjective: The patient is awake, alert, complaining of incisional pain. Feels better. Tolerating liquids. The patient is getting Lovenox subcu and started Coumadin yesterday as well. Objective: Vital Signs: Stable. Afebrile. Abdomen: Soft, nondistended, nontender. Positive bowel sounds. Dressing clean, dry, and intact. Laboratory Data: Reveals white count of 6.9, slight left shift. INR is 1.46. Chemistry reviewed. Essentially within normal limits. Assessment: Status post laparoscopic cholecystectomy for acute cholecystitis and cholelithiasis in a patient with replaced aortic valve and requirement for anticoagulation. Recommendation: Clinically, the patient is doing well from surgery. We will advance his diet today. Continue the IV antibiotics. Encourage ambulation, incentive spirometry and DVT prophylaxis. Medi kajal he needs his anticoagulation to be therapeutic prior to discharge, which the medical team is [facility]. The patient is doing well. /MODL Voice ID: [id number] Report ID: [id number]
--- NOTE | 2021-10-23 14:38 | P.PN ---
Subjective Date of Service: 10/23/21 Primary Care Provider: none-cardiology [facility] Chief Complaint: Cholecystitis Patient is complaining of uncontrolled pain. He also reports seeing blood in his urine. Noted Naqvi catheter was placed during the lap cholecystectomy and could have been traumatic. Physical Examination - Vital Signs Temperature: 97.5 F Blood Pressure: 148/66 Pulse: 89 Respirations: 20 Pulse Ox (%): 97 Assessment And Plan - Plan hysical exam GEN: Alert, oriented, appears uncomfortable HEENT: Normal conjunctiva, sclera anicteric CV: Irregular rate/rhythm Pulm: Nonlabored respiration on room air ABD: Soft, dressed laparoscopic wounds. Integumentary: No rashes Neuro: Normal speech, normal affect Problem List Acute cholecystitis History of atrial fibrillation/artificial valve on chronic anticoagulation th erapy with mildly elevated troponin Hypertension Incidental radiology findings Several small right lung nodules may indicate infection, inflammation or neoplasm 11 millimeter nonspecific hepatic lesion Plan: Acute cholecystitis: Status post lap cholecystectomy by Dr. Eubanks. On IV Zosyn. UA suggest possible UTI. So we will continue Zosyn until urine culture result. Patient started on a diet. Pain medication as needed History of atrial fibrillation/artificial valve on chronic anticoagulation therapy with mildly elevated troponin: Restarted Coumadin with Lovenox bridge. Adjust Coumadin until INR is therapeutic. Plan to keep inpatient until INR is therapeutic. Continue Coreg. Hypertension: Resumed home dose lisinopril. Incidental radiology findings Several small right lung nodules may indicate infection, inflammation or neoplasm 11 millimeter nonspecific hepatic lesion: Radiology recommends follow-up ultrasound of nonspecific hepatic lesion in 3 months. Would recommend PET scan as an outpatient.
[2021-10-23] MEDS ORDERED: WARFARIN SODIUM 3 MG TAB PO SCH (17:00)
[2021-10-24] MEDS: HYDROMORPHONE HCL 1 MG/ML INJ IV PRN ×2 (00:59→04:54)
[2021-10-24] MEDS: PIPER TAZO 3.375 GM in NA CHLORIDE 0.9% 100 ML IV SCH ×2 (01:02→08:36)
[2021-10-24] MEDS: NA CHLORIDE 0.9% 1,000 ML IV SCH (04:27)
[2021-10-24 05:46] LABS: Absolute Lymphocytes (CBC) 0.9 K/uL (0.7-4.9); Hematocrit 37.6 % (39.6-49.0); Lymphocytes % 14.8 % (15.3-44.8); RBC Red Blood Cell Count 4.06 M/uL (4.33-5.43)
[2021-10-24 05:54] LABS: Albumin 2.8 g/dL (3.4-5.0); Bilirubin Total 0.6 mg/dL (0.2-1.0); Magnesium 2.1 mg/dL (1.8-2.4); Potassium 4.1 mmol/L (3.5-5.1); Protein, Total 6.6 g/dL (6.4-8.2)
[2021-10-24 06:03] LABS: Protime INR 1.53
[2021-10-24] MEDS: HYDROCODONE/APAP 7.5/325 MG TAB PO PRN (08:35)
[2021-10-24] MEDS: ENOXAPARIN 80 MG/0.8 ML SQ SCH ×2 (08:36→10:20)
[2021-10-24] MEDS ORDERED: lisinopriL 10 MG TAB PO SCH (09:00)
[2021-10-24] MEDS ORDERED: ASPIRIN EC 81 MG TAB PO SCH (09:00)
[2021-10-24] MEDS ORDERED: carvediloL 12.5 MG TAB PO SCH (09:00)
[2021-10-24 09:05] VITALS: O2SAT 96
[2021-10-24 10:53] VITALS: BP 155/96; TEMP 97.3
--- NOTE | 2021-10-24 12:43 | P.DS ---
Admission Date: 10/21/21 Discharge Date: 10/24/21 Primary Care Provider: none-cardiology Federico Downs Disposition: ROUTINE DISCHARGE Discharge Condition: FAIR Reason for Admission: Cholecystitis Brief History of Present Illness: 66-year-old male with history of atrial fibrillation, artificial valve, hypertension presents emergency department for right upper quadrant abdominal pain. Patient reports approximate 24 to 48 hours of right upper quadrant pain radiating to the back. Patient was evaluated in the emergency department labs were significant for white blood cell count 12.8 INR 1.58 creatinine 1.32 GFR 54 glucose 121 troponin 0.05 chest x-ray shows small bilateral pleural effusions mild bilateral interstitial lung opacities may indicate infection or interstitial pulmonary edema CT of the abdomen pelvis with contrast demonstrates cholelithiasis with marked gallbladder wall thickening possibly cholecystitis, several small right lung nodules may indicate infection inflammation or neoplasm in addition to an 11 mm nonspecific hepatic lesion with recommended follow-up ultrasound in 3 months abdominal ultrasound demonstrates cholelithiasis with thickened gallbladder likely cholecystitis. Patient reports that he takes warfarin daily but has not had it since 10/19/2021. Case was discussed with general surgery who recommended patient be admitted on IV antibiotics, n.p.o. after midnight and cardiac clearance for cholecystectomy. Hospital Course: Problem List Acute cholecystitis History of atrial fibrillation/artificial valve on chronic anticoagulation therapy with mildly elevated troponin Hypertension Incidental radiology findings Several small right lung nodules may indicate infection, inflammation or neoplasm 11 millimeter nonspecific hepatic lesion Plan: Acute cholecystitis: Status post lap cholecystectomy by Dr. Eubanks. Patient treated with IV Zosyn. UA suggest possible UTI. He received 3 days of IV Zosyn. Patient tolerated diet. Cleared for discharge per Dr. Eubanks. Dr. Schroeder who will follow with him as an outpatient. History of atrial fibrillation/artificial valve on chronic anticoagulation therapy with mildly elevated troponin: Restarted Coumadin with Lovenox bridge. Patient will be discharged with his home dose Coumadin with Lovenox bridge for the next few days. He is a former to check his INR here in this hospital for Coumadin dose adjustment and instructions to discontinue the Lovenox injections. Continued Coreg. Hypertension: Resumed home dose lisinopril. Incidental radiology findings Several small right lung nodules may indicate infection, inflammation or neoplasm 11 millimeter nonspecific hepatic lesion: Radiology recommends follow-up ultrasound of nonspecific hepatic lesion in 3 months. Recommend PET scan as an outpatient. Patient informed of the need for PET scan. Vital Signs/Physical Exam: Temp Pulse Resp BP Pulse Ox 97.3 F 75 14 155/96 H 99 10/24/21 10:51 10/24/21 10:51 10/24/21 10:51 10/24/21 10:51 10/24/21 10:51 General: Alert, In no apparent distress, Oriented x3 HEENT: Mucous membr. moist/pink Neck: JVD not distended Respiratory: Clear to auscultation bilaterally, Normal air movement Cardiovascular: No edema, Normal S1 S2, Irregular heart rate/rhythm Gastrointestinal: Soft and benign, Non-distended, No tenderness Musculoskeletal: No swelling Integumentary: No rashes, No erythema, No cyanosis Neurological: Normal strength at 5/5 x4 extr Laboratory Data at Discharge: WBC 6.00 K/uL (4.3-10.9) 10/24/21 05:02 Hgb 12.0 g/dL (13.6-17.9) L 10/24/21 05:02 Hct 37.6 % (39.6-49.0) L 10/24/21 05:02 Plt Count 227 K/uL (152-406) 10/24/21 05:02 PT 17.7 SECONDS (9.5-12.5) H 10/24/21 05:02 INR 1.53 10/24/21 05:02 APTT 38.6 SECONDS (24.3-36.9) H 10/24/21 05:02 Sodium 138 mmol/L (136-145) 10/24/21 05:02 Potassium 4.1 mmol/L (3.5-5.1) 10/24/21 05:02 BUN 12 mg/dL (7-18) 10/24/21 05:02 Creatinine 1.00 mg/dL (0.55-1.3) 10/24/21 05:02 Glucose 102 mg/dL (74-106) 10/24/21 05:02 Phosphorus 4.3 mg/dL (2.5-4.9) 10/23/21 03:15 Magnesium 2.1 mg/dL (1.8-2.4) 10/24/21 05:02 Total Bilirubin 0.6 mg/dL (0.2-1.0) 10/24/21 05:02 AST 59 U/L (15-37) H 10/24/21 05:02 ALT 41 U/L (12-78) 10/24/21 05:02 Alkaline Phosphatase 87 U/L (45-117) 10/24/21 05:02 Troponin I 0.05 ng/mL (0.0-0.045) H 10/22/21 08:22 Triglycerides 82 mg/dL (<150) 10/22/21 08: Cholesterol 107 mg/dL (<200) 10/22/21 08: HDL Cholesterol 32 mg/dL (40-60) L 10/22/21 08: Cholesterol/HDL Ratio 3.34 10/22/21 08:22 Amylase 70 U/L (25-115) 10/21/21 17:06 Lipase 263 U/L (73-393) 10/21/21 17:06 Home Medications: Aspirin [Aspirin EC 81 MG] 1 tab PO DAILY 10/22/21 Carvedilol [Coreg] 1 tab PO DAILY 10/22/21 Lisinopril [Zestril] 1 tab PO DAILY 10/22/21 Warfarin Sodium 1 tab PO DAILY 10/22/21 Enoxaparin Sodium [Lovenox 80 MG INJ*] 80 mg SQ Q12HR #6 syr 10/24/21 Hydrocodone 7.5/APAP 325 [[place] 7.5/325 mg*] 1 tab PO Q4H PRN #20 tab 10/24/21 New Medications: Enoxaparin Sodium [Lovenox 80 MG INJ*] 80 mg SQ Q12HR #6 syr Hydrocodone 7.5/APAP 325 [[place] 7.5/325 mg*] 1 tab PO Q4H PRN #20 tab PRN Reason: Pain Scale 5-7 (Moderate) Physician Discharge Instructions: Please come to [facility] to check your PT/INR for Warfarin dose adjustment, and instructions to discontinue the Lovenox shots once INR is therapeutic. Please call PCP or Dr. Ortega with the INR result for Warfarin dose adjustment. You will need a PET scan as an outpatient to further evaluate your lung nodules to make sure they are not cancer. Diet: AHA Activity: Ad dana Followup: NONE,NONE [Primary Care Provider] - 1 Week Luis F Eubanks MD [ACTIVE - CAN ADMIT] - 1-2 Weeks Time spent managing pt's care (in minutes): 40
--- NOTE | 2021-10-26 18:20 | P.PN ---
Date of Service: 10/26/21 I tried to reach patient for follow-up regarding his anticoagulation with warfarin and Lovenox. Patient was supposed to do PT/INR today and the report sent to his PCP or call to me for Coumadin dose adjustment and to advise on whether to continue the Lovenox or stop it based on INR target of 2-3. I do not see any lab work done. I called patient on [phone], no answer, I left a message and callback number. I also called his next of kin Adela, [place] listed as his son on [phone], no answer. I left a message and a callback number.
== END 2021-10-24 14:16 | disposition home or self-care (01) | DRG 418 ==
LOC: ER 15:21 → ERHOLD 19:04 → 2ND 10-22 14:32
PROVIDERS: ADMIT Hospitalist; ATTEND Internal Medicine
PROC: 0FT44ZZ Resection of Gallbladder, Percutaneous Endoscopic Approach (ICD-10-PCS; principal; 2021-10-22 11:30)
DX: K80.00 Calculus of gallbladder with acute cholecystitis without obstruction (principal); N39.0 Urinary tract infection, site not specified; I10 Essential (primary) hypertension; I48.91 Unspecified atrial fibrillation; F17.210 Nicotine dependence, cigarettes, uncomplicated; R91.1 Solitary pulmonary nodule; Z79.01 Long term (current) use of anticoagulants; Z79.82 Long term (current) use of aspirin; Z79.899 Other long term (current) drug therapy; Z95.2 Presence of prosthetic heart valve; Z60.2 Problems related to living alone; Z20.822 Contact with and (suspected) exposure to COVID-19
CPT/HCPCS: 36415; 71045; 74177; 76705; 80048; 80053; 80061; 80076; 81001; 81003; 81015; 82150; 82550; 82553; 83605; 83690; 83735; 84100; 84145; 84439; 84443; 84484; 85025; 85610; 85730; 87040; 87086; 87088; 88304; 93005; 94010; 96372; 99285; J0330; J0360; J0690; J1170; J2250; J2405; J2543; J2704; J2710; J3010; J7030; J7120; Q9967; U0003

== ENCOUNTER 2025-07-12 08:13 | Inpatient (IN) | payer OTHER ==
[2025-07-12 08:45] LABS: Absolute Lymphocytes (CBC) 0.5 K/uL (0.7-4.9); Hematocrit 46.3 % (39.6-49.0); Hemoglobin 15.3 g/dL (13.6-17.9); MCH 31.2 pg (27.0-35.0); MCHC 33.2 g/dL (32.0-36.0); MCV 94.2 fL (80-100); MPV 8.3 fL (7.6-11.3); Nucleated RBC Absolute Count 0.0 (0-0); Nucleated Red Blood Cells % 0.1 % (0-0); RBC Red Blood Cell Count 4.91 M/uL (4.33-5.43); White Blood Count 7.80 thou/uL (4.3-10.9)
[2025-07-12] MEDS ORDERED: FUROSEMIDE 40 MG/4 ML VIAL ONE ×2 (08:48→09:50)
[2025-07-12 08:50] LABS: PT Prothrombin Time 45.6 SECONDS (10-13.0); Protime INR 4.21
[2025-07-12 09:05] LABS: ALT/SGPT 24.0 U/L (16-61); AST/SGOT 18.0 U/L (15-37); Albumin 3.6 g/dL (3.4-5.0); Albumin/Globulin Ratio 0.9 (1.1-1.8); Alkaline Phosphatase 132.0 U/L (45-117); Anion Gap 12.4 mEq/L (5.0-15.0); BUN Blood Urea Nitrogen 12.0 mg/dL (7-18); Bilirubin Indirect, Calculated 2.3 mg/dL (0.2-0.8); Globulin 4.1 g/dL (2.3-3.5); Glucose Level 132.0 mg/dL (74-106); Magnesium 1.9 mg/dL (1.6-2.4); NT PRO-BNP 11113.0 pg/mL (<125); Potassium 4.4 mEq/L (3.5-5.1); Troponin High Sensitivity 58.6 pg/mL (<58.9)
--- NOTE | 2025-07-12 09:23 | EDPHYS ---
Physician Documentation [facility] Name: Devon Chapman Age: 70 yrs Sex: Male : 1955 Arrival Date: 07/12/2025 Time: 08:13 Bed 19 Private MD: ED Physician Dorian Bose HPI: 07/12 08:18 This 70 yrs old Male presents to ER via Unassigned with complaints of Shortness Of sb4 Breath. 08:30 Patient presents today with complaints of shortness of breath and insomnia. States that sb4 he has been out of his medications for over a month now, finally got them filled yesterday, but did not take them. Supposed to be on lisinopril, Lasix, warfarin, carvedilol, and aspirin. Reports presence of a mechanical aortic valve. 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 Historical: - Allergies: 08:34 No Known Allergies; ss - Home Meds: 09:24 furosemide 40 mg Oral tablet daily [Active]; carvedilol 12.5 mg oral tablet 2 times per iw day [Active]; warfarin 5 mg oral tablet daily [Active]; lisinopril 40 mg oral tablet daily [Active]; trazodone 50 mg oral tablet every day at bedtime [Active]; - PMHx: 08:34 Hypertension; CHF; ss - PSHx: 08:34 Heart valve replaced; R shoulder; ss - Immunization history:: Adult Immunizations unknown. - Infectious Disease History:: Denies. - Social history:: Smoking status: Patient reports the use of cigarette tobacco products, smokes one-half pack cigarettes per day, Patient uses alcohol, on a daily basis. 1 pint of Hart a day. ROS: 08:30 Constitutional: Negative for fever, chills, and weight loss, sb4 08:30 Respiratory: Positive for shortness of breath, 08:30 All other systems are negative, Exam: 08:30 Head/Face: Normocephalic, atraumatic. sb4 08:30 Constitutional: The patient appears alert, awake, in obvious distress, moderately distressed, 08:30 Cardiovascular: Edema: 3+ edema to level of left knee and right knee, 08:30 Cardiovascular: Rate: tachycardic, Rhythm: irregularly irregular, 08:30 Respiratory: moderate respiratory distress is noted, Respirations: labored breathing, tachypnea, Breath sounds: rales, that are moderate, are located in both bases, 08:30 Abdomen/GI: Inspection: distension, that is moderate, Skin is mottled, 08:30 Skin: Vital Signs: 08:29 BP 176 / 120; Pulse 120; Resp 32; Temp 97.9(O); Pulse Ox 92% on R/A; Weight 83.46 kg; ss Height 6 ft. 0 in. ; Pain 0/10; 08:38 Pulse Ox 98% on 2 lpm NC; ss 08:40 BP 171 / 100; Pulse 107; Resp 28 S; Pulse Ox 96% on 2 lpm NC; iw 09:04 Pulse 99; Resp 28; Pulse Ox 95% on 2 lpm NC; iw 09:27 BP 183 / 133; Pulse 108; Resp 29; Pulse Ox 95% on 2 lpm NC; iw 10:00 BP 177 / 121; Pulse 113; Resp 23; Pulse Ox 94% on 2 lpm NC; me1 10:45 BP 201 / 122; Pulse 105; Resp 26; Pulse Ox 94% on 2 lpm NC; me1 11:57 BP 180 / 106; Pulse 112; Resp 28; Pulse Ox 96% on 2 lpm NC; me1 12:45 BP 223 / 165; Pulse 108; Resp 26; Pulse Ox 97% on 3 lpm NC; me1 08:29 Body Mass Index 24.95 (83.46 kg, 182.88 cm) ss 08:29 Pain Scale: Adult ss MDM: 08:17 Medical Screening Exam initiated sb4 08:32 Differential diagnosis: CHF exacerbation, Chronic Obstructive Pulmonary Disease sb4 Myocardial Infarction pulmonary edema. 09:20 Antibiotic administration: Not indicated, the patient does not have an appreciated sb4 infiltrate. Data interpreted: Pulse oximetry: on 2L(s) per nasal canula, is 95 %. Data reviewed: vital signs, nurses notes, lab test result(s), EKG, radiologic studies, plain films, and as a result, I will admit patient. Consideration of Admission/Observation Patient was admitted/placed on observation. Independent interpretation of the following test(s) in the Emergency Department X-Ray: My interpretation is Chest x-ray - cardiomegaly and bilateral pleural effusions. Care significantly affected by the following chronic conditions: Hypertension, Congestive Heart Failure, Chronic Obstructive Pulmonary Disease. Counseling: I had a detailed discussion with the patient and/or guardian regarding the historical points, exam findings, and any diagnostic results supporting the discharge/admit diagnosis, the presence of at least one elevated blood pressure reading (>120/80) during this emergency department visit, lab results, radiology results, the need for further work-up and treatment in the hospital. 07/12 08:24 Order name: Basic Metabolic Panel; Complete Time: 09:09 sb4 07/12 08:24 Order name: CBC with Diff; Complete Time: 10:02 sb4 07/12 08:24 Order name: LFT's; Complete Time: 09: sb4 07/12 08:24 Order name: Magnesium; Complete Time: 09: sb4 07/12 08:24 Order name: NT PRO-BNP; Complete Time: 09:09 sb4 07/12 08:24 Order name: PT-INR; Complete Time: 08:54 sb4 07/12 08:24 Order name: Troponin HS; Complete Time: 09:09 sb4 07/12 08:57 Order name: Manual Differential; Complete Time: 10:02 EDMS 07/12 10:34 Order name: CBC with Automated Diff ED[facility] 07/12 10:34 Order name: CBC with Automated Diff [facility] 07/12 10:34 Order name: Comprehensive Metabolic Panel [facility] 07/12 10:34 Order name: Comprehensive Metabolic Panel [facility] 07/12 10:34 Order name: Protime (+INR) [facility] 07/12 10:34 Order name: Protime (+INR) [facility] 07/12 10:34 Order name: PTT, Activated Partial Thromb [facility] 07/12 10:34 Order name: PTT, Activated Partial Thromb [facility] 07/12 10:54 Order name: ABG; Complete Time: 11:27 sb4 07/12 08:24 Order name: XRAY Chest (1 view); Complete Time: 09:42 sb4 07/12 10:34 Order name: CONS Physician Consult ED[facility] 07/12 08:24 Order name: Cardiac monitoring; Complete Time: 08:41 sb4 07/12 08:24 Order name: EKG - Nurse/Tech; Complete Time: 08:40 sb4 07/12 08:24 Order name: IV Saline Lock; Complete Time: 08:41 sb4 07/12 08:24 Order name: Labs collected and sent; Complete Time: : sb4 07/12 08:24 Order name: O2 Per Protocol; Complete Time: sb4 07/12 08:24 Order name: O2 Sat Monitoring; Complete Time: : sb4 EC:28 Rate is 116 beats/min. Rhythm is irregularly irregular, A fib. QRS interval is normal sb4 at 106 msec. QT interval is normal at 336 msec. No Q waves. Clinical impression: Atrial Fibrillation. Interpreted by me. Reviewed by me. Administered Medications: 08:55 Drug: Furosemide IVP 40 mg IVP once; give over 2 minutes Route: IVP; Site: left iw antecubital; 10:51 Follow up: Response: No adverse reaction me1 09:57 Drug: Furosemide IVP 40 mg IVP once; give over 2 minutes Route: IVP; Site: left iw antecubital; 10:51 Follow up: Response: No adverse reaction me1 Disposition: 16:53 I was immediately available on-site in the Emergency Department for consultation in the ms3 care of the patient. Disposition Summary: 07/12/25 09:22 Hospitalization Ordered Notes: Hospitalization Status: Inpatient Admission sb4 Condition: Fair sb4 Problem: new sb4 Symptoms: are unchanged sb4 Bed/Room Type: Standard sb4 Provider: Elan Zapata(07/12/25 09:24) sb4 Location: Intensive Care Unit(07/12/25 11:19) bd Room Assignment: 6-(07/12/25 11:19) bd Diagnosis - CHF Exacerbation sb4 - Patient's noncompliance with medical treatment and regimen sb4 - Supratherapeutic INR sb4 Forms: - Medication Reconciliation Form sb4 - SBAR form sb4 - Leadership Thank You Letter sb4 Signatures: Dispatcher [employer] EDMS Abi Flores Corina Alvarez RN RN Gwendolyn Ma RN RN ss Dorian Bose DO DO ms3 Sherri Toney PA-C PAJesus sb4 Karo Mooney RN RN me1 Corrections: (The following items were deleted from the chart) 08:25 08:25 BASIC METABOLIC PANEL+C.LAB.BRZ ordered. EDMS EDMS 08:25 08:25 CBC+H.LAB.BRZ ordered. EDMS EDMS 08:25 08:25 HEPATIC FUNCTION+C.LAB.BRZ ordered. EDMS EDMS 08:25 08:25 MAGNESIUM+C.LAB.BRZ ordered. EDMS EDMS 08:25 08:25 PROBNP+C.LAB.BRZ ordered. EDMS EDMS 08:25 08:25 PROTIME (+INR)+COAG.LAB.BRZ ordered. EDMS EDMS 08:25 08:25 Troponin High Sensitivity+C.LAB.BRZ ordered. EDMS EDMS 08:25 08:25 Chest Single View+RAD.RAD.BRZ ordered. EDMS EDMS 09:24 09:22 Robert Ortega sb4 sb4 10:39 09:22 sb4 bd 10:54 10:54 Arterial Blood Gas+RC.LAB.BRZ ordered. EDMS EDMS 11:19 09:22 Telemetry/MedSurg (Inpatient) sb4 bd 11:19 10:39 225 bd bd
--- NOTE | 2025-07-12 09:23 | ER ---
Nurse's Notes [facility] Name: Devon Chapman Age: 70 yrs Sex: Male : 1955 Arrival Date: 07/12/2025 Time: 08:13 Bed 19 Private MD: Diagnosis: CHF Exacerbation;Patient's noncompliance with medical treatment and regimen;Supratherapeutic INR Presentation: 07/12 08:29 Chief complaint: Patient states: SOB x 1.5 weeks, worse this morning. Pt reports he has ss also been unable to sleep but is unsure if it's because he is unable to breath well. Has not taken prescribed medication in 1 month, but picked up refills yesterday. Coronavirus screen: Client denies travel out of the [place] in the last 14 days. Ebola Screen: Patient denies exposure to infectious person. Patient denies travel to an Ebola-affected area in the 21 days before illness onset. Initial Sepsis Screen: Does the patient meet any 2 criteria? No. Patient's initial sepsis screen is negative. Does the patient have a suspected source of infection? No. Patient's initial sepsis screen is negative. Risk Assessment: Do you want to hurt yourself or someone else? Patient reports no desire to harm self or others. Onset of symptoms is unknown. 08:29 Acuity: SHAYNA 2 ss 08:29 Method Of Arrival: Ambulatory ss Triage Assessment: 12:46 Respiratory: Onset: The symptoms/episode began/occurred gradually. me1 Historical: - Allergies: 08:34 No Known Allergies; ss - Home Meds: 09:24 furosemide 40 mg Oral tablet daily [Active]; carvedilol 12.5 mg oral tablet 2 times per iw day [Active]; warfarin 5 mg oral tablet daily [Active]; lisinopril 40 mg oral tablet daily [Active]; trazodone 50 mg oral tablet every day at bedtime [Active]; - PMHx: 08:34 Hypertension; CHF; ss - PSHx: 08:34 Heart valve replaced; R shoulder; ss - Immunization history:: Adult Immunizations unknown. - Infectious Disease History:: Denies. - Social history:: Smoking status: Patient reports the use of cigarette tobacco products, smokes one-half pack cigarettes per day, Patient uses alcohol, on a daily basis. 1 pint tom Nascimento a day. Screenin:57 [facility] ED Fall Risk Assessment (Adult) History of falling in the last 3 months, iw including since admission No falls in past 3 months (0 pts) Confusion or Disorientation No (0 pts) Intoxicated or Sedated No (0 pts) Impaired Gait No (0 pts) Mobility Assist Device Used No (0 pt) Altered Elimination No (0 pt) Score/Fall Risk Level 0 - 2 = Low Risk Oriented to surroundings, Maintained a safe environment. Abuse screen: Denies threats or abuse. Nutritional screening: No deficits noted. Tuberculosis screening: No symptoms or risk factors identified. Assessment: 08:55 General: Appears uncomfortable, Behavior is cooperative. Pain: Denies pain. Neuro: iw Level of Consciousness is awake, alert, obeys commands, Oriented to person, place, time, situation, Moves all extremities. Full function. Cardiovascular: Reports palpitations, shortness of breath, Patient's skin is warm and dry. Edema is 3+ to left midcalf and right midcalf pitting to left midcalf, left ankle, right midcalf and right ankle Rhythm is atrial fibrillation with rapid ventricular response Chest pain is denied. Respiratory: Reports shortness of breath at rest on exertion cough that is non-productive, labored breathing Airway is patent Respiratory effort is even, labored, Respiratory pattern is tachypnea Breath sounds with rales bilaterally. the patient has moderate shortness of breath. GI: Abdomen is flat, non-distended. Derm: Skin is intact. Musculoskeletal: Range of motion: intact in all extremities. 09:58 Reassessment: Patient appears in no apparent distress at this time. Respiratory: iw Reports shortness of breath at rest on exertion Airway is patent Respiratory effort is even, labored. Vital Signs: 08:29 BP 176 / 120; Pulse 120; Resp 32; Temp 97.9(O); Pulse Ox 92% on R/A; Weight 83.46 kg; ss Height 6 ft. 0 in. ; Pain 0/10; 08:38 Pulse Ox 98% on 2 lpm NC; ss 08:40 BP 171 / 100; Pulse 107; Resp 28 S; Pulse Ox 96% on 2 lpm NC; iw 09:04 Pulse 99; Resp 28; Pulse Ox 95% on 2 lpm NC; iw 09:27 BP 183 / 133; Pulse 108; Resp 29; Pulse Ox 95% on 2 lpm NC; iw 10:00 BP 177 / 121; Pulse 113; Resp 23; Pulse Ox 94% on 2 lpm NC; me1 10:45 BP 201 / 122; Pulse 105; Resp 26; Pulse Ox 94% on 2 lpm NC; me1 11:57 BP 180 / 106; Pulse 112; Resp 28; Pulse Ox 96% on 2 lpm NC; me1 12:45 BP 223 / 165; Pulse 108; Resp 26; Pulse Ox 97% on 3 lpm NC; me1 08:29 Body Mass Index 24.95 (83.46 kg, 182.88 cm) ss 08:29 Pain Scale: Adult ss ED Course: 08:16 Patient arrived in ED. al6 08:17 Sherri Toney PA-C is PHCP. sb4 08:17 Dorian Bose DO is Attending Physician. sb4 08:19 Corina Alvarez, RN is Primary Nurse. iw 08:30 EKG done, by ED staff, reviewed by Sherri Toney PA-C. ap3 08:32 Triage completed. ss 08:34 Arm band placed on right wrist. ss 08:40 Initial lab(s) drawn, by me, sent to lab. Inserted saline lock: 20 gauge in left iw antecubital area, using aseptic technique. Blood collected. Flushed with 10 mL NS. 08:57 Patient has correct armband on for positive identification. Client placed on continuous iw cardiac and pulse oximetry monitoring. NIBP monitoring applied. monitoring specialist on. Warm blanket given. 08:58 Provided Education on: lab wait time . iw 09:22 Robert Ortega is Hospitalizing Provider. sb4 09:24 XRAY Chest (1 view) In Process Unspecified. EDMS 09:24 Elan Zapata MD is Hospitalizing Provider. sb4 11:09 ABG Sent. me1 12:35 Karo Mooney, KATARINA is Primary Nurse. me1 12:35 No provider procedures requiring assistance completed. Patient admitted, IV remains in me1 place. Administered Medications: 08:55 Drug: Furosemide IVP 40 mg IVP once; give over 2 minutes Route: IVP; Site: left iw antecubital; 10:51 Follow up: Response: No adverse reaction me1 09:57 Drug: Furosemide IVP 40 mg IVP once; give over 2 minutes Route: IVP; Site: left iw antecubital; 10:51 Follow up: Response: No adverse reaction me1 Medication: 08:57 VIS not applicable for this client. iw Output: 09:58 Urine: 550ml (Voided); Total: 550ml. iw 11:17 Urine: 1250ml (Voided); Total: 1800ml. me1 11:34 Urine: 200ml (Voided); Total: 2000ml. me1 Outcome: 09:22 Decision to Hospitalize by Provider. sb4 12:35 Admitted to ICU accompanied by nurse, via stretcher, room -6, with oxygen, with chart, me1 Report called to KATARINA Diamond 12:35 Condition: stable 12:35 Instructed on the need for admit, 12:50 Patient left the ED. me1 Signatures: Dispatcher [employer] Corina Whitaker RN RN iw Gwendolyn Ma RN RN ss Kaelyn Wilhelm RN RN ap3 Sherri Toney, PA-C PA-C sb4 Karo Mooney RN RN me1 Debbie Pro6 Corrections: (The following items were deleted from the chart) 12:01 11:57 BP 180 / 164; Pulse 112bpm; Resp 28bpm; Pulse Ox 96% 2 lpm Nasal Cannula; me1 me1
--- NOTE | 2025-07-12 09:41 | RAD REPORT ---
Procedure: Chest Single View HISTORY: Chest pain COMPARISON: 2022 FINDINGS: Moderate bilateral pulmonary opacities within the lungs. The heart is moderately enlarged. Probable small to moderate pleural effusions IMPRESSION: These findings likely indicate moderate CHF
[2025-07-12 09:49] LABS: Blood Morphology Comment NOT SEEN (NOT SEEN); Differential Total Cells Count 100; Segmented Neutrophils 84 % (40-80)
[2025-07-12] MEDS ORDERED: ACETAMINOPHEN 500 MG TAB PO PRN (10:30)
[2025-07-12] MEDS ORDERED: MORPHINE 2 MG/ML SYR IV PRN (10:30)
[2025-07-12] MEDS ORDERED: ONDANSETRON 4 MG/2 ML VIAL IV PRN (10:30)
--- NOTE | 2025-07-12 10:35 | P.HP ---
Patient History Date of Service: 07/12/25 Reason for admission: CHF exacerbation History of Present Illness: Mr. Osorio is a 70-year old male with past medical history of chronic heart failure, hypertension, and mechanical heart valve replacement, who presents to the ER with 1.5 weeks of dyspnea and bilateral lower extremity pitting edema. His symptoms make it difficult for him to lie supine and he reports only getting 3-4 hours of sleep per night for the past 7 weeks. His legs have been swollen for the past 5 days. Patient is having a non-productive cough that worsens on exertion. He has been unable to access his heart failure medication for the past month due to travel issues. He states that today, he is fatigued and experiencing chills. Patient reports that per his son, he has had similar symptoms about 3 years ago. He smokes 1/2 pack of cigarettes a day and drink 1 pint of bourbon a day. His last drink was 07/10/2025 - patient denies having any withdrawal symptoms. In the emergency room, patient's blood pressure was significantly elevated. Systolic blood pressure was 200 and diastolic blood pressure greater than 100. Patient was very tachypneic. Patient will be admitted to the ICU for closer monitoring of acute CHF exacerbation with concern for severe systolic dysf unction. Patient also with liver toxicity and he appears to have cirrhosis. Patient will be admitted for inpatient hospitalization. Critical care time spent on patient care was 60 minutes. Allergies No Known Allergies Allergy (Unverified 10/22/21 02:22) Home Medications: Carvedilol [Coreg] 12.5 mg PO BID 07/12/25 Diphenhydramine HCl [Allergy Relief] 25 mg PO BEDTIME 07/12/25 Furosemide [Lasix*] 40 mg PO DAILY 07/12/25 Trazodone [Desyrel*] 50 mg PO BEDTIME 07/12/25 Warfarin Sodium [Coumadin*] 5 mg PO DAILY 07/12/25 lisinopriL [Lisinopril] 40 mg PO DAILY 07/12/25 - Past Medical/Surgical History -: Atrial fibrillation -: Artificial valve -: Hypertension -: Artificial valve -: Right shoulder -: cholecystectomy Psychosocial/ Personal History: Patient retired, lives at home alone. - Family History Father Medical History: Cancer Mother Medical History: Cancer - Social History Smoking Status: Current every day smoker Alcohol use: Yes CD- Drugs: No Caffeine use: Yes Review of Systems 10-point ROS is otherwise unremarkable Physical Examination - Vital Signs Blood Pressure: 153/112 - Physical Exam General: Alert, In no apparent distress, Oriented x3 HEENT: Atraumatic, PERRLA, Mucous membr. moist/pink, EOMI, Sclerae nonicteric Neck: Supple, 2+ carotid pulse no bruit, No LAD, JVD distended Respiratory: Diminished, Crackles/rales Cardiovascular: Regular rate/rhythm, Normal S1 S2, Systolic murmur Gastrointestinal: Normal bowel sounds, Soft and benign, Non-distended, No tender ness Musculoskeletal: No clubbing, Swelling Neurological: Normal gait, Normal speech, Normal strength at 5/5 x4 extr, Normal tone, Sensation intact, Cranial nerves 3-12 intact, Normal affect Lymphatics: No axilla or inguinal lymphadenopathy - Studies Laboratory Data (last 24 hrs) 07/12/25 07/12/25 07/12/25 08:36 08:36 08:36 WBC 7.80 Hgb 15.3 Hct 46.3 Plt Count 228 PT 45.6 H INR 4.21 Sodium 135 L Potassium 4.4 BUN 12 Creatinine 1.30 Glucose 132 H Magnesium 1.9 Total Bilirubin 3.4 H AST 18 ALT 24 Alkaline Phosphatase 132 H Assessment & Plan - Problems (Diagnosis) (1) Acute exacerbation of CHF (congestive heart failure) Current Visit: Yes Status: Acute (2) Liver cirrhosis Current Visit: Yes Status: Acute (3) Hypertensive emergency Current Visit: Yes Status: Acute (4) Alcohol abuse Current Visit: Yes Status: Acute (5) Tobacco abuse Current Visit: Yes Status: Acute - Plan Plan: 1. Patient with acute CHF exacerbation systolic dysfunction; continue with IV diuretics. 2. Patient with alcoholic liver cirrhosis; DT preventions and monitor liver function.. All Coumadin and will monitor INR 3. Hypertensive emergency; continue with gradually reducing blood pressure. Monitor end-organ injury. Cardene drip. 4. Mechanical aortic valve; INR needs to be from 2.5-3.5. Anticoagulate 5. BPH; some hematuria with Naqvi catheter placement. Monitor H&H 6. GI DVT prophylaxis Discharge Plan: Home Plan to discharge in: Greater than 2 days - Advance Directives Does patient have a Living Will: No Does patient have a Durable POA for Healthcare: No - Code Status/Comfort Care Code Status Assessed: Yes Code Status: Full Code Critical Care: Yes Time Spent Managing PTS Care (In Minutes): 60
[2025-07-12 11:24] LABS: Arterial Blood Carboxyhemoglob 4.6 % (0.0-1.5); Blood Gas Oxyhemoglobin 90.1 % (94.0-97.0); Blood O2 Saturation 94.6 % (92.0-98.5)
[2025-07-12 11:25] LABS: Blood Gas Inspired Oxygen 94.0 %
[2025-07-12] MEDS: NITROGLYCERIN 1 GM PKT TD ONE (11:31)
[2025-07-12] MEDS: HYDRALAZINE HCL 20 MG/ML VIAL IV PRN (13:21)
[2025-07-12] MEDS: SACUBITRIL/VALSARTAN 24/26 MG TAB PO SCH (13:50)
[2025-07-12] MEDS: METOPROLOL TARTRATE 5 MG/5 ML INJ IV PRN (14:00)
[2025-07-12] MEDS: Nicardipine/NS 25 MG/250 ML KIT IV SCH (14:00)
--- NOTE | 2025-07-12 14:21 | RAD REPORT ---
EXAMINATION: US Abdomen Exam Complete CLINICAL INDICATION: Male, 70 years, [facility] MAIN Hepatomegaly TECHNIQUE: Grayscale ultrasonography of the abdomen was performed. [id number]. COMPARISON: No prior exam. FINDINGS: LIVER: Normal size and echogenicity. Incidentally noted echogenic the right lobe 1.6 cm ovoid lesion, may represent a small hemangioma. No suspicious masses seen. GALLBLADDER: No gallstones, gall bladder wall thickening or pericholecystic fluid. No reported sono graphic Cunningham's sign. BILE DUCTS: Intrahepatic and extrahepatic bile ducts appear normal. Measured near the otoniel hepatis , the common bile duct is 0.5 cm RIGHT KIDNEY: Right renal length measurement: 9.8 cm. Diffuse increased cortical echogenicity. Normal size. No calculus, solid mass or hydronephrosis. LEFT KIDNEY: Left renal length measurement: 10.6 cm. Diffusedly increased cortical echogenicity. Norm al size. No calculus, solid mass or hydronephrosis. SPLEEN: Normal in echogenicity, with length of 10.6 cm PANCREAS: The visualized pancreas is normal in size and echogenicity. AORTA AND INFERIOR VENA CAVA: Visualized segments of the aorta and inferior vena cava are normal. ASCITES: None. ADDITIONAL FINDINGS: None. IMPRESSION: Increased renal cortical echogenicity suggesting medical renal disease. Right liver lobe echogenic lesion measuring 1.6 cm, may represent a small hemangioma.
[2025-07-12] MEDS: FUROSEMIDE 40 MG/4 ML VIAL IV SCH (15:59)
[2025-07-13 06:00] VITALS: BMI 24.6
[2025-07-13 07:09] LABS: Absolute Lymphocytes (CBC) 0.9 K/uL (0.7-4.9); Hematocrit 48.7 % (39.6-49.0); Hemoglobin 16.1 g/dL (13.6-17.9); MCH 31.1 pg (27.0-35.0); MCHC 33.2 g/dL (32.0-36.0); MCV 93.7 fL (80-100); MPV 9.3 fL (7.6-11.3); Nucleated RBC Absolute Count 0.0 (0-0); Nucleated Red Blood Cells % 0.3 % (0-0); RBC Red Blood Cell Count 5.19 M/uL (4.33-5.43); White Blood Count 11.20 thou/uL (4.3-10.9)
[2025-07-13 07:13] LABS: ALT/SGPT 16.0 U/L (16-61); AST/SGOT 17.0 U/L (15-37); Albumin 3.1 g/dL (3.4-5.0); Albumin/Globulin Ratio 0.8 (1.1-1.8); Alkaline Phosphatase 117.0 U/L (45-117); Anion Gap 11.6 mEq/L (5.0-15.0); BUN Blood Urea Nitrogen 18.0 mg/dL (7-18); Globulin 3.9 g/dL (2.3-3.5); Glucose Level 120.0 mg/dL (74-106); Potassium 3.6 mEq/L (3.5-5.1)
[2025-07-13 07:20] LABS: PT Prothrombin Time 26.1 SECONDS (10-13.0); PTT, Activated Partial Thromb 39.7 SECONDS (27.2-37.4); Protime INR 2.37
[2025-07-13] MEDS: SACUBITRIL/VALSARTAN 24/26 MG TAB PO SCH (08:34)
[2025-07-13] MEDS: ENOXAPARIN 80 MG/0.8 ML SQ ONE (09:58)
--- NOTE | 2025-07-13 11:42 | P.CNS ---
Date of Consult: 07/13/25 Chief Complaint: CHF exacerbation History of Present Illness: Patient with PMH of mechanical aortic valve, HTN, atrial fibrillation, presented with worsening SOB and ARMIJO, denies chest pain, no palpitations, no syncope. Allergies No Known Allergies Allergy (Unverified 10/22/21 02:22) Home medications list reviewed: Yes Home Medications: Carvedilol [Coreg] 12.5 mg PO BID 07/12/25 Diphenhydramine HCl [Allergy Relief] 25 mg PO BEDTIME 07/12/25 Furosemide [Lasix*] 40 mg PO DAILY 07/12/25 Trazodone [Desyrel*] 50 mg PO BEDTIME 07/12/25 Warfarin Sodium [Coumadin*] 5 mg PO DAILY 07/12/25 lisinopriL [Lisinopril] 40 mg PO DAILY 07/12/25 - Past Medical/Surgical History -: Atrial fibrillation -: Artificial valve -: Hypertension -: Artificial valve -: Right shoulder -: cholecystectomy Psychosocial/ Personal History: Patient retired, lives at home alone. - Family History Father Medical History: Cancer Mother Medical History: Cancer - Social History Smoking Status: Current every day smoker Alcohol use: Yes CD- Drugs: No Caffeine use: Yes Review of Systems 10-point ROS is otherwise unremarkable Physical Examination Temp Pulse Resp BP Pulse Ox 97.2 F 87 19 122/80 98 07/13/25 08:00 07/13/25 10:00 07/13/25 10:00 07/13/25 10:00 07/13/25 10:00 General: Alert, In no apparent distress HEENT: Atraumatic, PERRLA, Mucous membr. moist/pink, EOMI, Sclerae nonicteric Neck: Supple, 2+ carotid pulse no bruit, No LAD, Without JVD or thyroid abnormality Respiratory: Clear to auscultation bilaterally, Normal air movement Cardiovascular: Normal S1 S2, Irregular heart rate/rhythm, Systolic murmur Gastrointestinal: Normal bowel sounds, No tenderness Musculoskeletal: No tenderness Integumentary: No rashes Neurological: Normal gait, Normal speech, Normal tone, Normal affect Lymphatics: No axilla or inguinal lymphadenopathy - Problems (1) H/O mechanical aortic valve replacement Current Visit: Yes Status: Acute Plan: will follow up on echo to check on valve function INR goal is 2-3, patient was supra therapeutic, no INR is back to normall agree with lowering coumadin dose to 4 mg daily, meanwhile continue lovenox (2) Acute exacerbation of CHF (congestive heart failure) Current Visit: Yes Status: Acute Plan: patient diursed well with lasix, may switch to PO in am continue coreg 6.25 mg po BID Continue Entresto continue to monitor input and output and electrolytes. (3) Hypertensive emergency Current Visit: Yes Status: Acute
[2025-07-13] MEDS: WARFARIN SODIUM 4 MG TAB PO SCH (17:05)
[2025-07-13] MEDS: ENOXAPARIN 80 MG/0.8 ML SQ SCH (21:31)
[2025-07-14 07:38] LABS: PT Prothrombin Time 21.3 SECONDS (10-13.0); Protime INR 1.92
[2025-07-14] MEDS: FUROSEMIDE 40 MG/4 ML VIAL IV SCH (08:54)
--- NOTE | 2025-07-14 09:11 | P.PN ---
Date of Service: 07/13/25 Subjective Patient clinically doing better. Respiratory status is improved. Will continue monitoring clinical symptoms. Physical Examination - Vital Signs Reviewed - Physical Exam General: Alert, In no apparent distress, Oriented x3 Neck: JVD distention improved Respiratory: Diminished, Crackles/rales Cardiovascular: Regular rate/rhythm, Normal S1 S2, Systolic murmur Gastrointestinal: Normal bowel sounds, Soft and benign, Non-distended, No tenderness Musculoskeletal: No clubbing, Swelling Neurological: Normal gait, Normal speech, Normal strength at 5/5 x4 extr, Normal tone, Sensation intact, Cranial nerves 3-12 intact, Normal affect Assessment & Plan - Problems (Diagnosis) (1) Acute exacerbation of CHF (congestive heart failure) Current Visit: Yes Status: Acute (2) Liver cirrhosis Current Visit: Yes Status: Acute (3) Hypertensive emergency Current Visit: Yes Status: Acute (4) Alcohol abuse Current Visit: Yes Status: Acute (5) Tobacco abuse Current Visit: Yes Status: Acute - Plan Continue plan of care as mentioned below: 1. Patient with acute CHF exacerbation systolic dysfunction; continue with IV diuretics. 2. Patient with alcoholic liver cirrhosis; DT preventions and monitor liver function.. All Coumadin and will monitor INR 3. Hypertensive emergency; continue with gradually reducing blood pressure. Monitor end-organ injury. Cardene drip. 4. Mechanical aortic valve; INR needs to be from 2.5-3.5. Anticoagulate 5. BPH; some hematuria with Naqvi catheter placement. Monitor H&H 6. GI DVT prophylaxis Discharge Plan: Home Plan to discharge in: Greater than 2 days - Advance Directives Does patient have a Living Will: No Does patient have a Durable POA for Healthcare: No - Code Status/Comfort Care Code Status Assessed: Yes Code Status: Full Code Critical Care: no Time Spent Managing PTS Care (In Minutes): 30
--- NOTE | 2025-07-14 11:15 | RAD REPORT ---
EXAMINATION: ONE VIEW CHEST XR CLINICAL INDICATION: Male, 70 years old.,chf TECHNIQUE: Frontal chest projection is submitted. Examination is limited by patient positioning and t echnique. COMPARISON: 07/12/2025 FINDINGS: The lungs are well inflated. Stable left basilar patchy pleural-parenchymal opacity. Central predomin ant interstitial opacities mildly improved. No pneumothorax or sizable effusion. The heart is normal in size. Mediastinal contours are unremarkable. IMPRESSION: Improving findings of central congestion. Stable left basilar pleural-parenchymal opacity which could relate to a combination of effusion and atelectasis versus underlying pneumonia.
[2025-07-14 11:18] LABS: Absolute Lymphocytes (CBC) 0.8 K/uL (0.7-4.9); Hematocrit 48.2 % (39.6-49.0); Hemoglobin 16.2 g/dL (13.6-17.9); MCH 31.4 pg (27.0-35.0); MCHC 33.6 g/dL (32.0-36.0); MCV 93.5 fL (80-100); MPV 9.1 fL (7.6-11.3); Nucleated RBC Absolute Count 0.0 (0-0); Nucleated Red Blood Cells % 0.1 % (0-0); RBC Red Blood Cell Count 5.15 M/uL (4.33-5.43); White Blood Count 9.10 thou/uL (4.3-10.9)
[2025-07-14 11:35] LABS: Anion Gap 10.8 mEq/L (5.0-15.0); BUN Blood Urea Nitrogen 20.0 mg/dL (7-18); Glucose Level 164.0 mg/dL (74-106); Potassium 2.8 mEq/L (3.5-5.1)
--- NOTE | 2025-07-14 12:10 | P.PN ---
Subjective Date of Service: 07/14/25 Chief Complaint: CHF exacerbation Subjective: No new changes, No C/O voiced, Tolerating diet, Ambulating, Improving Review of Systems 10-point ROS is otherwise unremarkable Physical Examination - Vital Signs Temperature: 98.1 F Blood Pressure: 124/76 Pulse: 76 Respirations: 16 Pulse Ox (%): 94 - Physical Exam General: Alert, In no apparent distress HEENT: Atraumatic, PERRLA, EOMI Neck: Supple, JVD not distended Respiratory: Clear to auscultation bilaterally, Normal air movement Cardiovascular: Regular rate/rhythm, Normal S1 S2 Gastrointestinal: Normal bowel sounds, No tenderness Musculoskeletal: No tenderness Integumentary: No rashes Neurological: Normal speech, Normal tone, Normal affect Lymphatics: No axilla or inguinal lymphadenopathy - Studies Medications List Reviewed: Yes Assessment And Plan - Current Problems (Diagnosis) (1) Acute exacerbation of CHF (congestive heart failure) Current Visit: Yes Status: Acute Plan: patient diursed well with lasix, may switch to PO in am continue coreg 6.25 mg po BID Continue Entresto continue to monitor input and output and electrolytes. Patient echo shows severe reduced LV systolic function, plan for coronary angiogram in am (2) Hypertensive emergency Current Visit: Yes Status: Acute Plan: medications as above. (3) Atrial fibrillation Current Visit: Yes Status: Acute Plan: continue coreg 6.25 mg po bid continue Coumadin as patient can not offer NOAC (4) History of bioprosthetic transcatheter aortic valve implantation (KENNETH) Current Visit: Yes Status: Acute Plan: echo show normal functioning valve.
[2025-07-14] MEDS: POTASSIUM PHOS 30 MM in NA CHLORIDE 0.9% 500 ML IV ONE (15:18)
[2025-07-14] MEDS: TRAZODONE 50 MG TABLET PO SCH (21:10)
[2025-07-15 04:42] VITALS: TEMP 97.9
[2025-07-15] MEDS: ASPIRIN 325 MG TAB PO ONE (05:51)
[2025-07-15] MEDS ORDERED: VERAPAMIL HCL 10 MG/4 ML VIAL IV ONE (06:51)
[2025-07-15] MEDS ORDERED: HEPARIN 10,000 UNIT/10 ML VIAL IV ONE (06:51)
[2025-07-15] MEDS ORDERED: HEPA 1000U/500MLS 2,000 UNIT/1,000 ML BAG IV ONE (06:51)
[2025-07-15] MEDS ORDERED: LIDOCAINE 1% 20 ML MDV ONE (06:51)
[2025-07-15] MEDS ORDERED: HEPARIN 5000 UNIT/ML 1 ML VIAL ONE (06:51)
[2025-07-15] MEDS ORDERED: NITROGLYCERIN/D5W 50 MG/250 ML BTL IV ONE (06:52)
[2025-07-15 07:11] LABS: PT Prothrombin Time 21.3 SECONDS (10-13.0); Protime INR 1.92
[2025-07-15] MEDS ORDERED: FENTANYL CITR 100 MCG/2 ML ONE (07:11)
[2025-07-15] MEDS ORDERED: MIDAZOLAM HCL 2 MG/2 ML INJ ONE (07:12)
[2025-07-15] MEDS ORDERED: NA CHLORIDE 0.9% 500 ML ONE (07:13)
[2025-07-15 10:05] VITALS: BP 110/85
[2025-07-15 10:24] VITALS: O2SAT 96
--- NOTE | 2025-07-15 14:05 | P.PN ---
Subjective Date of Service: 07/15/25 Chief Complaint: CHF exacerbation Subjective: No new changes, No C/O voiced, Tolerating diet, Ambulating, Improving Review of Systems 10-point ROS is otherwise unremarkable Physical Examination - Vital Signs Temperature: 97.9 F Blood Pressure: 110/85 Pulse: 83 Respirations: 15 Pulse Ox (%): 97 - Physical Exam General: Alert, In no apparent distress HEENT: Atraumatic, PERRLA, EOMI Neck: Supple, JVD not distended Respiratory: Clear to auscultation bilaterally, Normal air movement Cardiovascular: Regular rate/rhythm, Normal S1 S2 Gastrointestinal: Normal bowel sounds, No tenderness Musculoskeletal: No tenderness Integumentary: No rashes Neurological: Normal speech, Normal tone, Normal affect Lymphatics: No axilla or inguinal lymphadenopathy - Studies Medications List Reviewed: Yes Assessment And Plan - Current Problems (Diagnosis) (1) Acute exacerbation of CHF (congestive heart failure) Current Visit: Yes Status: Acute Plan: patient diursed well with lasix, switch to lasix 40 mg daily continue coreg 6.25 mg po BID Continue Entresto continue to monitor input and output and electrolytes. Patient echo shows severe reduced LV systolic function, most likely EOTH related patient had coronary angiogram done today that shown normal LAD/LCX with RCA TOW TRUCK OPERATOR with left to right collaterals (2) Hypertensive emergency Current Visit: Yes Status: Acute Plan: medications as above. (3) Atrial fibrillation Current Visit: Yes Status: Acute Plan: continue coreg 6.25 mg po bid continue Coumadin as patient can not offer NOAC (4) History of bioprosthetic transcatheter aortic valve implantation (KENNETH) Current Visit: Yes Status: Acute Plan: echo show normal functioning valve.
--- NOTE | 2025-07-15 22:37 | OP ---
Date of Procedure: 07/15/2025 Surgeon: Rl Oerllana Procedure Performed: Selective coronary angiogram. Indication For Procedure: Newly diagnosed heart failure. Complications: None. Estimated Blood Loss: Less than 50 cc. Access: Right radial, closed by TR band. Sedation Time: 20 minutes with 1 of Versed and 25 of fentanyl. Description Of Procedure: After risks, benefits, and alternatives were explained to the patient, the patient agreed to proceed with procedure and signed informed consent. The patient was brought back to the photo lab technician, prepped and draped in sterile fashion. Time-out was performed. Sedation was admini stered. Next, right radial access was obtained using ultrasound-guided micropuncture technique. Tig er 4 catheter was advanced over a J-wire to the aortic root. Selective angiogram was done using the same catheter. At the end of procedure, catheter was removed over a J-wire. Sheath was removed. TR band was applied. Hemostasis was achieved and the patient was moved back to recovery in stable cond ition. Findings: 1. Left main, normal. 2. LAD with mild luminal irregularities. 3. Left circ; mild luminal irregularities. 4. RCA; mid BALL FRINGE MACHINE OPERATOR calcified with left to right collaterals into RPDA. Assessment/plan: 1. RCA BALL FRINGE MACHINE OPERATOR with [id number] collaterals. 2. Normal LAD and left circ arteries. 3. Nonischemic cardiomyopathy. 4. Plan is to continue aggressive medical management for heart failure. ANDRIA/AIDAN Voice ID: [id number] Report ID: [id number]
== END 2025-07-15 17:22 | disposition home or self-care (01) | DRG 286 ==
LOC: ER 08:13 → ERHOLD 10:30 → 3RD-ICU 12:37 → 4TH 07-13 17:48
PROVIDERS: ADMIT Hospitalist; ATTEND Hospitalist
PROC: 4A033R1 Measurement of Arterial Saturation, Peripheral, Percutaneous Approach (ICD-10-PCS; 2025-07-12)
PROC: 5A09457 Assistance with Respiratory Ventilation, 24-96 Consecutive Hours, Continuous Positive Airway Pressure (ICD-10-PCS; 2025-07-12)
PROC: 0T9B70Z Drainage of Bladder with Drainage Device, Via Natural or Artificial Opening (ICD-10-PCS; 2025-07-12)
PROC: 4A023N7 Measurement of Cardiac Sampling and Pressure, Left Heart, Percutaneous Approach (ICD-10-PCS; principal; 2025-07-15)
PROC: B2111ZZ Fluoroscopy of Multiple Coronary Arteries using Low Osmolar Contrast (ICD-10-PCS; 2025-07-15)
DX: I11.0 Hypertensive heart disease with heart failure (principal); I50.23 Acute on chronic systolic (congestive) heart failure; J96.01 Acute respiratory failure with hypoxia; I16.1 Hypertensive emergency; G47.00 Insomnia, unspecified; I48.91 Unspecified atrial fibrillation; F10.10 Alcohol abuse, uncomplicated; K70.30 Alcoholic cirrhosis of liver without ascites; J44.9 Chronic obstructive pulmonary disease, unspecified; N40.0 Benign prostatic hyperplasia without lower urinary tract symptoms; F17.210 Nicotine dependence, cigarettes, uncomplicated; R31.9 Hematuria, unspecified; Z60.2 Problems related to living alone; Z79.02 Long term (current) use of antithrombotics/antiplatelets; Z79.01 Long term (current) use of anticoagulants; Z79.899 Other long term (current) drug therapy; Z95.2 Presence of prosthetic heart valve; Z91.199 Patient's noncompliance with other medical treatment and regimen due to unspecified reason; Z90.49 Acquired absence of other specified parts of digestive tract
CPT/HCPCS: 36415; 36600; 71045; 76700; 76937; 80048; 80053; 80076; 82805; 83735; 83880; 84132; 84484; 85025; 85610; 85730; 93005; 93306; 93454; 94660; 94760; 96374; 99152; 99285; C1893; J0360; J1644; J1650; J1938; J2003; J2250; J2404; J3010; J7040; Q9966